=== PATIENT | male | born 1995 | race Caucasian/White ===

== ENCOUNTER 2024-10-22 14:35 | Emergency (ER) | payer OTHER, SELFPAY ==
[2024-10-22 14:43] VITALS: BP 137/104; PULSE 100; TEMP 36.6; O2SAT 97; BMI 35.4
--- OUTSIDE RECORDS SUMMARY | 2024-10-22 14:45 | XMS_ITS | Encounter Summary ---
Author Organization [facility] Address [address] [place] [address] Care Team Providers Care Technology Sales Representative Name Role Phone Delmer Yadav DO Primary Care Provider [phone] Umer Ruelas DO Unavailable [phone] Reason for Visit * Reason Onset Date Comments Med Refill 09/21/2023 Encounter Details Date Type Department Care Team (Late st Contact Info) Description 09/21/2023 Refill [facility] [address] [facility] [address] [place] [phone] Anselmo Potts PA [address] [facility] [address] [place], [place] [id number] Left hip pain Social History Tobacco Use Types Packs/Day Years Used Date Smoking Tobacco: Never Smokeless Tobacco: Never Alcohol Use Standard Drinks/Week Comments Yes 0 (1 standard drink = 0.6 oz pur e alcohol) AUDIT-C Answer Date Recorded Q1: How often do you have a drink containing alc ohol? 2-4 times a month 07/09/2023 Q2: How many drinks containi ng alcohol do you have on a typical day when you are drinking? 1 or 2 07/09/2023 Q3: How often do you have si x or more drinks on one occasion? Never 07/09/2023 PHQ-2 Answer Date Recorded Patient Health Questionnaire-2 Score 0 09/07/2023 Sex and Gender Information Value Date Recorded Sex Assigned at Male 09/07/2023 2:31 PM EDT Legal Sex Male 8:35 PM EDT Gender Identity Male 09/07/2023 2:31 PM EDT Sexual Orientation Long 09/07/2023 2: 31 PM EDT documented as of this encounter Plan of Treatment Upcoming Encounters Date Type Department Care Team (Late st Contact Info) Description 11/04/2024 8:00 AM EDT Office Visit [facility] [address] [place] [phone] Anselmo Potts PA [address] [place] [address] documented as of this encounter Visit Diagnoses Diagnosis Left hip pain Pain in joint, pelvic region and thigh documented in this encounter Care Teams Technology Sales Representative Relationship Specialty Start Date End Date Delmer Yadav DO [address] [facility] [address] [place] [address] PCP - General Family Medicine 09/07/23 Umer Ruelas DO [address] [facility] [address] [place] [address] PCP - Medical Harvey Commercial 11/26/19 05/27/99 documented as of this encounter
--- OUTSIDE RECORDS SUMMARY | 2024-10-22 14:45 | XMS_ITS | Clinical Summary ---
Author Organization [facility] Address [address] [place] [address] Care Team Providers Care Utility Mechanic Supervisor Name Role Phone Anselmo Potts PA-C Unavailable [phone] Anselmo Potts PA-C Primary Care Provider [phone] Allergies No known active allergies Medications atorvastatin (LIPITOR) 10 mg tablet Take by mouth every 24 hours. 03/29/20 23 Active fluticasone (FLONASE) 50 mcg/actuation nasal spray Use in the nose. 10/01/19 22 Active lisinopril (ZESTRIL) 20 mg tablet Take 20 mg by mouth. 07/20/19 23 Active montelukast (SINGULAIR) 10 mg tablet Take 10 mg by mouth. 08/13/19 22 Active vortioxetine (TRINTELLIX) 20 mg tablet Take 20 mg by mouth. 08/22/19 24 Active MEDICAL SUPPLYIndications :Other systemic lupus erythematosus with other organ involvement (HCC),Positive ROBLES (antinuclear antibody),Medicat ion monitoring encounter Hot tub for medical therapy 1 Each 12/27/19 24 Active meloxicam (MOBIC) 15 mg tablet Take 0.5-1 tablets by mouth once daily as needed for pain. Take with food 30 tablet 1 07/10/19 25 Active predniSONE (DELTASONE) 5 mg tablet Take 6 tab in AM on day 1 then reduce dose by 1 tablet every day until off 21 tablet 09/10/19 25 Active hydrOXYchloroQUIN E (PLAQUENIL) 200 mg tablet Take 1 tablet by mouth every 12 hours. YEARLY EYE EXAMS - NEXT DUE BEFORE DEC 2024 180 tablet 10/04/19 25 025 Active hydrOXYchloroQUIN E (PLAQUENIL) 200 mg tablet Take 1 tablet by mouth two times a day. 60 tablet 5 05/01/20 24 025 Discontinued Active Problems Problem Noted Date Diagnosed Date Class 2 severe obesity with serious comorbidity and body mass index (BMI) of 39.0 to 39.9 in adult 05/10/2024 Impaired fasting glucose 05/10/2024 Allergic rhinitis 09/29/2023 09/29/2023 Obstructive sleep apnea syndrome 09/29/2023 09/29/2023 Anxiety 08/10/2023 09/29/2023 Fibromyalgia 08/10/2023 09/29/2023 PTSD (post-traumatic stress disorder) 08/10/2023 09/29/2023 Hyperlipidemia 08/10/2023 09/29/2023 Obesity with body mass index 30 or greater 08/0909/29/2023 TMJ arthropathy 09/27/2020 09/29/2023 Primary hypertension 06/28/2020 09/29/2023 Primary insomnia 12/25/2019 09/29/2023 Encounters Date Type Department Care Team Description 10/03/2024 Refill Rheumatology [address] [place] [address] Donnell Null, [employer] Refill Request 09/23/2024 Telephone Endocrinology [address] [place] [address] Marco Johnson V, MD Appointment 09/10/2024 Get Medical Advice Rheumatology [address] [place] [address] Asmita Luong MD Change in flare symptoms 09/08/2024 Telephone Rheumatology [address] [place] [address] Asmita Luong MD Joint Pain 08/22/2024 9:00 AM EDT [facility] Endocrinology [address] [place], [place] [id number] Karlene Alfaro RD Class 2 severe obesity with serious comorbidity and body mass index (BMI) of 39.0 to 39.9 in adult, unspecified obesity type (HCC) (Primary Dx); Impaired fasting glucose; BMI 39.0-39.9,adult; Family history of diabetes mellitus type II 08/22/2024 Patient Msg Endocrinology [address] [place] [address] Provider, [facility] Message from [facility] DietitianTorrie 08/22/2024 Travel from Last 3 Months Social History Tobacco Use Types Packs/Day Years Used Date Smoking Tobacco: Never Smokeless Tobacco: Never Tobacco Cessation:Counseling Given: Not Answered Alcohol Use Standard Drinks/Week Comments Not Asked 0 (1 standard drink = 0.6 oz pure alcohol) socially, no more than 2 drinks in a month (cocktails) PHQ-2 Answer Date Recorded PHQ-2 score 0 09/27/2023 Area Deprivation Index Answer Date Chandler rded National Score (1-100), lower number is lower ri sk 61 10/01/2023 State Score (1-10), lower number is lower risk 4 10/01/2023 Data from: https://www.neighborhoodatlas.medicine.[facility].edu/. Last address used for calculation [address] [place] [address] 10/01/2023 Sex and Gender Information Value Date Recorded Sex Assigned at Not on file Legal Sex Male 6:38 PM EST Gender Identity Male 07/03/2024 1:34 PM EST Sexual Orientation Not on file Last Filed Vital Signs Vital Sign Reading Time Taken Comments Blood Pressure 145/88 05/10/2024 11:26 AM EST Pulse 97 05/10/2024 11:26 AM EST Temperature - - Respiratory Rate 16 05/10/2024 11:26 AM EST Oxygen Saturation - - Inhaled Oxygen Concentration - - Weight 122.5 kg (270 lb 1 oz) 05/10/2024 11:26 A M EST Height 175.3 cm (5' 9 ) 02/07/2024 12:45 PM EDT Body Mass Index 39.88 02/07/2024 12:45 PM EDT Plan of Treatment Upcoming Encounters Date Type Department Care Team (Late st Contact Info) Description 05/26/2025 2:00 PM EST Office Visit [facility] [address] [facility] [place] [address] Margarita Eugene MD [address] [place] [address] follow up Health Maintenance Due Date Last Done Comments HPV Vaccine: Recommended Bas ed On Risk 1995 Annual PCP Team Chronic Dise ase Visit 12/11/2013 BP Controlled (<130/80) 12/11/2013 Depression Screening 12/11/2013 Hepatitis C Screening 12/11/2013 DTaP,Tdap,Td Vaccine (6 - Td or Tdap) 10/13/2032 10/13/2022, 08/19/1997, 07/23/1996, Additional history exists Hepatitis B Vaccine Completed 10/13/2022, 08/19/1997, 02/11/1996, Additional history exists HIV Screening Completed 04/20/2023 Covid-19 Vaccine Completed 03/21/2024, , 04/01/2021, Additional history exists Influenza Vaccine Completed 03/21/2024, , 03/18/2021, Additional history exists [place] [address] [facility] Care Teams Utility Mechanic Supervisor Relationship Specialty Start Date End Date Anselmo Potts PA-C [address] [place] [address] PCP - General Physician Coal Picker 05/20/24 Anselmo Potts PA-C [address] [place] [address] Referring Physician Coal Picker 09/23/23
--- OUTSIDE RECORDS SUMMARY | 2024-10-22 14:46 | XMS_ITS | Encounter Summary ---
Author Organization [facility] Address [address] [facility] [place] [address] Care Team Providers Care Nursing Support Worker Name Role Phone Delmer Yadav DO Primary Care Provider [phone] Umer Ruelas DO Unavailable [phone] Encounter Details Date Type Department Care Team (Late st Contact Info) Description 10/21/2024 Telephone [facility] [address] [facility] [address] [place] [phone] Gris Waldron MA Social History Tobacco Use Types Packs/Day Years Used Date Smoking Tobacco: Never Smokeless Tobacco: Never Alcohol Use Standard Drinks/Week Comments Yes 0 (1 standard drink = 0.6 oz pur e alcohol) B1300 Health Literacy Answer Date Recor ded How often do you need to hav e someone help you when you read instructions, pamphlets, or other written material from your doctor or pharmacy? Never 11/09/2023 Social Connection and Isolation Panel [NHANES] A nswer Date Recorded In a typical week, how many times do you talk on the phone with family, friends, or neighbors? Three times a week 11/09/2023 How often do you get togethe r with friends or relatives? Once a week 11/09/2023 How often do you attend [facility] or episcopalian services? Never 11/09/2023 Do you belong to any clubs o r organizations such as hinduism groups, unions, fraternal or athletic groups, or school groups? No 11/09/2023 How often do you attend meet ings of the clubs or organizations you belong to? Never 11/09/2023 Are you , , di vorced, , never , or living with a partner? 11/09/2023 AUDIT-C Answer Date Recorded Q1: How often do you have a drink containing alc ohol? Monthly or less 11/09/2023 Q2: How many drinks containi ng alcohol do you have on a typical day when you are drinking? 1 or 2 11/09/2023 Q3: How often do you have si x or more drinks on one occasion? Never 11/09/2023 Overall Financial Resource Strain (CARDIA) Answe r Date Recorded How hard is it for you to pa y for the very basics like food, housing, medical care, and heating? Not hard at all 11/09/2023 PHQ-2 Answer Date Recorded Patient Health Questionnaire-2 Score 0 10/07/2024 [facility] - Occupational Stress Questionnaire Answer Date Recorded Do you feel stress - tense, restless, nervous, or anxious, or unable to sleep at night because your mind is troubled all the time - these days? Not at all 11/09/2023 Exercise Vital Sign Answer Date Recorde d On average, how many days pe r week do you engage in moderate to strenuous exercise (like a brisk walk)? 0 days 11/09/2023 On average, how many minutes do you engage in exercise at this level? 0 min 11/09/2023 Hunger Vital Sign Answer Date Recorded Within the past 12 months, y ou worried that your food would run out before you got the money to buy more. Never true 11/09/19 24 Within the past 12 months, t he food you bought just didn't last and you didn't have money to get more. Never true 11/09/2023 PRAPARE - Transportation Answer Date Re corded In the past 12 months, has l ack of transportation kept you from medical appointments or from getting medications? No 10/26 In the past 12 months, has l ack of transportation kept you from meetings, work, or from getting things needed for daily living? No 11/09/2023 Housing Stability Vital Sign Answer Dayday e Recorded In the last 12 months, was t here a time when you were not able to pay the mortgage or rent on time? No 11/09/2023 In the past 12 months, how m any times have you moved where you were living? 0 11/09/2023 At any time in the past 12 m [facility], were you homeless or living in a retirement (including now)? No 11/09/2023 Sex and Gender Information Value Date Recorded Sex Assigned at Male 09/07/2023 2:31 PM EDT Legal Sex Male 8:35 PM EDT Gender Identity Male 09/07/2023 2:31 PM EDT Sexual Orientation Long 09/07/2023 2: 31 PM EDT documented as of this encounter Miscellaneous Notes * Telephone Encounter - Gris Waldron MA - 10/21/2024 4:30 PM EDT Please advise. documented in this encounter Plan of Treatment Upcoming Encounters Date Type Department Care Team (Late st Contact Info) Description 11/04/2024 8:00 AM EDT Office Visit [facility] [address] [place] [address] Anselmo Potts PA [address] [place] [address] documented as of this encounter Goals Goal Patient Goal Type Associated Problems Recent Progress Patient-Stated? Author Help patient manage antidepressant medication Care Plan Patient on antidepressant monitoring plan No Anselmo Potts PA Baseline PHQ-9 Care Plan Baseline PHQ-9 No Anselmo Potts PA documented as of this encounter Visit Diagnoses Not on filedocumented in this encounter Additional Health Concerns Active Problems Noted Date Diagnosed Date Patient on antidepressant monitoring plan 2023 Baseline PHQ-9 03/25/2024 documented as of this encounter Care Teams Nursing Support Worker Relationship Specialty Start Date End Date Delmer Yadav DO [address] [place] [address] PCP - General Family Medicine 09/07/23 Umer Ruelas DO [address] [place] [phone] PCP - Medical [employer] 11/26/19 05/27/99 documented as of this encounter
--- OUTSIDE RECORDS SUMMARY | 2024-10-22 14:46 | XMS_ITS | Encounter Summary ---
Author Organization [facility] Address [address] [place] [address] Care Team Providers Care Mailing Machine Helper Name Role Phone Delmer Yadav DO Primary Care Provider [phone] Umer Ruelas DO Unavailable [phone] Encounter Details Date Type Department Care Team (Late st Contact Info) Description 10/22/2024 Orders Only [facility] [address] [facility] 230 [place] [address] Anselmo Potts PA [address] [facility] [address] [place], [place] [phone] Diarrhea of presumed infectious origin (Primary Dx) Social History Tobacco Use Types Packs/Day Years [...] week 11/09/2023 How often do you attend chur ch or voodoo services? Never 11/09/2023 Do you belong to any clubs o r organizations such as baptist groups, unions, fraternal or athletic groups, or [...] Recorded Patient Health Questionnaire-2 Score 0 10/07/2024 [facility] - Occupational Stress Questionnaire Answer Date Recorded [...] any time in the past 12 m [facility], were you homeless or living in a jail (including now)? No 11/09/2023 Sex and Gender [...] Visit [facility] [address] [place] [address] Anselmo Potts PA [address] [place] [address] Scheduled Orders Name Type Priority Associated Diagnoses Orde r Schedule Stool culture Microbiology Routine Diarrhea of presumed infectious origin Expected: 10/22/2024 (Approximate), Expires: 10/22/2025 documented as of this encounter Goals Goal Patient Goal Type Associated Problems Recent Progress Patient-Stated? Author Help patient manage antidepressant medication Care Plan Patient on antidepressant monitoring plan No Anselmo Potts PA Baseline PHQ-9 Care Plan Baseline PHQ-9 No Anselmo Potts PA documented as of this encounter Visit Diagnoses Diagnosis Diarrhea of presumed infectious origin- Primary documented in this encounter Additional Health Concerns Active Problems Noted Date Diagnosed Date Patient on antidepressant monitoring plan 2023 Baseline PHQ-9 03/25/2024 documented as of this encounter Care Teams Mailing Machine Helper Relationship Specialty Start Date End Date Delmer Yadav DO [address] [place] [address] PCP - General Family Medicine 09/07/23 Umer Ruelas DO [address] [place] [id number] [place] [address] PCP - Medical [employer] 11/26/19 05/27/99 documented as of this encounter
--- OUTSIDE RECORDS SUMMARY | 2024-10-22 14:46 | XMS_ITS | Encounter Summary ---
Author Organization [facility] Address [address] [place] [address] Care Team Providers Care Funeral Car Chauffeur Name Role Phone Anselmo Potts PA-C Unavailable Anselmo Potts PA-C Primary Care Provider [phone] Source Comments In the event this information is protected by the Federal Confidentiality of Alcohol and Drug AbusePatient Records regulations: The Federal rules restrict any use of the information to criminally investigate or prosecute any alcohol or drug abuse patient.[facility] Encounter Details Date Type Department Care Team (Late st Contact Info) Description 05/17/2024 Patient Msg Endocrinology [address] [place] [address] Marco Johnson V, MD [address] [place] [address] labs Social History Tobacco Use Types Packs/Day Years Used Date Smoking Tobacco: Never Smokeless Tobacco: Never Alcohol Use Standard Drinks/Week Comments Not Asked [...] is lower risk 4 10/01/2023 Data from: https://www.neighborhoodatlas.medicine.[facility].edu/. Last address used for calculation [address] 10/01/2023 Sex and Gender Information Value Date Recorded Sex Assigned at Not on file Legal Sex Male 6:38 PM EST Gender Identity Male 07/03/2024 1:34 PM EST Sexual Orientation Not on file documented as of this encounter Miscellaneous Notes * Telephone Encounter - Zulema Scott MA - 06/06/2024 9:34 AM EST Attempted prior authorization via [employer]. Received response that Olga had been denied on 03/27/2024. documented in this encounter Plan of Treatment Upcoming Encounters Date Type Department Care Team (Late st Contact Info) Description 05/26/2025 2:00 PM EST Office Visit Rheumatology [address] [place] [address] Margarita Eugene MD [address] [place], [place] [phone] follow up documented as of this encounter Visit Diagnoses Not on filedocumented in this encounter Care Teams Funeral Car Chauffeur Relationship Specialty Start Date End Date Anselmo Potts PA-C [address] [place] [address] PCP - General Physician Jewelry Cutter 05/20/24 Anselmo Potts PA-C [address] [place] [address] Referring Physician Jewelry Cutter 09/23/23 documented as of this encounter
--- OUTSIDE RECORDS SUMMARY | 2024-10-22 14:46 | XMS_ITS | Encounter Summary ---
Author Organization [facility] Address [address] [place] [address] Phone Care Team Providers Care Social Media Executive Name Role Phone Anselmo Potts Primary Care Provider [phone] Encounter Details Date Type Department Care Team (Latest Contact Info) Description 10/08/2023 Transcribe Orders [facility] [address] [place] [address] Rachid Mcdonald MD [address] [address] Constipation (Primary Dx) Social History Tobacco Use Types Packs/Day Years Used Date Smoking Tobacco: Never Smokeless Tobacco: Never Alcohol Use Standard Drinks/Week Comments Never 0 (1 standard drink = 0.6 oz pur e alcohol) Sex and Gender Information Value Date Recorded Sex Assigned at Male 08/13/2023 8:51 AM EDT Legal Sex Male 1:49 PM EST Gender Identity Male 08/13/2023 8:51 AM EDT Sexual Orientation Long 08/13/2023 8: 51 AM EDT COVID-19 Exposure Response Date Recorded In the last 10 days, have yo u been in contact with someone who was confirmed or suspected to have Coronavirus/COVID-19? No / Unsure 09/24/2023 3:43 PM EDT documented as of this encounter Plan of Treatment Not on file documented as of this encounter Visit Diagnoses Diagnosis Constipation- Primary Unspecified constipation documented in this encounter Care Teams Social Media Executive Relationship Specialty Start Date End Date Anselmo Potts PA [address] [place] [id number] PCP - General Family Medicine 08/22/23 documented as of this encounter
--- OUTSIDE RECORDS SUMMARY | 2024-10-22 14:46 | XMS_ITS | Patient Health Record ---
Author Organization [facility] Servic es Address [address] [place] [address] Care Team Providers Care Welder 2Nd Shift Name Role Phone DelgadoMadeleine Primary Care Provider [phone] Allergies No Known Allergies Reason For Referral No Information Medications Medication SIG (Take, Route, Frequency, Duration) Notes Start Date End Date Status Glycopyrrolate 2 MG 1 tablet Orally twice daily Active Wellbutrin XL 150 MG 1 tablet in the morning Orally Once a day for 30 day(s) Active MiraLax 17 GM/SCOOP as directed Orally Twice a day as needed Active Ondansetron 4 MG 1 tablet on the tongue and allow to dissolve Orally three times a day (tid) as needed (prn) for 15 days 08/21/2022 Not-Taking Nabumetone 500 MG 1 tablet Orally Twice a day Active Rogaine Mens Extra Strength 5 % as directed Externally Not-Taking Montelukast Sodium 10 mg TAKE ONE TABLET BY MOUTH DAILY for 30 Active Gabapentin 300 MG 1 capsule Orally 3 times a day for 30 days As needed Active Atorvastatin Calcium 10 mg TAKE ONE TABL ET BY MOUTH ONCE DAILY for 30 Active Loratadine 10 MG 1 tablet Orally twice a day Active Melatonin 10 MG as directed Orally Active hydroCHLOROthiazide 12.5 mg TAKE ONE TAB LET BY MOUTH DAILY IN THE MORNING NEEDED for 30 Not-Taking Pepcid 20 MG 1 tablet at bedtime as needed Orally Once a day Active Docusate Sodium 100 mg TAKE ONE CAPSULE BY MOUTH ONCE DAILY NEEDED for 30 Active Lisinopril-hydroCHLOROthiazi d e 20-12.5 MG TAKE ONE TABLET BY MOUTH ONCE DAILY for 30 Not-Taking Trintellix 20 MG 1 tablet Orally Once a day for 90 days Active Meloxicam 15 MG TAKE ONE TABLET BY MOUTH ONCE DAILY Orally Once a day for 30 day(s) Not-Taking Social History Tobacco Use: Social History Observation Description Date Details (start date - stop date) Never Smoker NA - NA Tobacco Screen: Question Answer Notes Are you a: never smoker Alcohol Screening: Question Answer Notes Did you have a drink containing alcohol in the p ast year? No Points 0 Interpretation Negative Problems Problem Type SNOMED Code ICD Code Onset Dates Problem Status W/U Status Risk Notes Problem 39840575348206 Morbid (severe) obesity due to excess calories (E66.01) Active confirmed Problem 653783452 Other obesity du e to excess calories (E66.09) Active confirmed Problem 028359788 Fibromyalgia (M79.7) Active confirmed Problem 27734855 Vitamin D defici ency (E55.9) Active confirmed Problem 66466057 Dysfunction of b oth eustachian tubes (H69.83) Active confirmed Problem 71067193 Allergic sinusit is (J30.9) Active confirmed Problem 66853443 Constipation, unspecified constipation type (K59.00) Active confirmed Problem 06581032 Fatigue, unspeci fied type (R53.83) Active confirmed Problem 05642864 Chronic fatigue (R53.82) Active confirmed Problem 251709581 Insomnia, unspec ified type (G47.00) Active confirmed Problem 619495001 Mild episode of recurrent major depressive disorder (F33.0) Active confirmed Problem 91490393 Arthralgia, unspecified joint (M25.50) Active confirmed Problem 60751474 Hypercholesterol emia (E78.00) Active confirmed Problem 994690256 BMI 33.0-33.9,ad ult (Z68.33) Active confirmed Problem 887927902 ROBLES positive (R76.8) Active confirmed Problem 48558661 REYNOLD (generalized anxiety disorder) (F41.1) Active confirmed Problem 895039893 Body mass index [BMI] 33.0-33.9, adult (Z68.33) Active confirmed Problem 211156621 Body mass index [BMI] 37.0-37.9, adult (Z68.37) Active confirmed Problem 041626519 Obesity, unspeci fied (E66.9) Inactive confirmed Problem 360671844 Body mass index [BMI] 35.0-35.9, adult (Z68.35) Inactive confirmed Plan Of Treatment No Information Insurance Providers Payer Name Payer Address Payer Phone Subscriber Number Group Number Insured Name Patient Relationship to Insured Coverage Start Date Coverage End Date [employer] PPO [address] [place] [address] [id number] MALKA ALEJANDRO Self - patient is the insured 2 [employer] CLAIMS [address] [address] [place] [address] [id number] MALKA ALEJANDRO Self - patient is the insured 3 Medications Administered Medication Instructions Date of Administration Dosage Notes Kenalog 04/26/2023 40 mg Medical (General) History Medical History History ICD Code hypertension allergies PTSD anxiety CHRONIC CONSTIPATION EUSTACIAN TUBE DISFUNCTION Surgical History Surgery Date(Month/Year) left ankle 06/2020 Hospitalization History Reason Date(Month/Year) CHEST PAIN 06/2022 see surgical
--- OUTSIDE RECORDS SUMMARY | 2024-10-22 14:46 | XMS_ITS | Encounter Summary ---
Author Organization [facility] Address [address] [place] [address] Care Team Providers Care Client Operations Manager Name Role Phone Anselmo Potts PA-C Unavailable [phone] Anselmo Ptots PA-C Primary Care Provider [phone] Source Comments In the event this information is protected by the Federal Confidentiality of Alcohol and Drug AbusePatient Records regulations: The Federal rules restrict any use of the information to criminally investigate or prosecute any alcohol or drug abuse patient.[facility] Encounter Details Date Type Department Care Team (Late st Contact Info) Description 05/13/2024 Get Medical Advice Endocrinology [address] [place] [address] Marco Johnson V, MD [address] [place] [address] Dexamethasone Social History Tobacco Use Types Packs/Day Years [...] is lower risk 4 10/01/2023 Data from: https://www.neighborhoodatlas.medicine.[facility].edu/. Last address used for calculation [address] 10/01/2023 Sex and Gender Information Value Date Recorded Sex Assigned at Not on file Legal Sex Male 6:38 PM EST Gender Identity Male 07/03/2024 1:34 PM EST Sexual Orientation Not on file documented as of this encounter Miscellaneous Notes * Telephone Encounter - Mickie Nunez RN - 05/15/2024 1:04 PM EST Requester: Patient Last Endocrinology visit: 05/10/2024. Follow-up visit scheduled: Visit date not found. Requested Prescriptions Pending Prescriptions Disp Refills dexAMETHasone (DECADRON) 1 mg tablet 1 tablet 0 Sig: Take 1 tablet at 11 pm and draw blood the next day PSS NOTE: Please schedule appointment: No Thank you! Gena Nunez RN documented in this encounter Plan of Treatment Upcoming Encounters Date Type Department Care Team (Late st Contact Info) Description 05/26/2025 2:00 PM EST Office Visit Rheumatology [address] [place] [address] Margarita Eugene MD [address] [place], [place] [address] follow up documented as of this encounter Visit Diagnoses Diagnosis Class 2 severe obesity with serious comorbidity and body mass index (BMI) of 39.0 to 39.9 in adult, unspecified obesity type (HCC) documented in this encounter Care Teams Client Operations Manager Relationship Specialty Start Date End Date Anselmo Potts PA-C [address] [place] [address] PCP - General Physician Pulper Operator 05/20/24 Anselmo Potts PA-C [address] [place] [address] Referring Physician Pulper Operator 09/23/23 documented as of this encounter
--- OUTSIDE RECORDS SUMMARY | 2024-10-22 14:46 | XMS_ITS | Encounter Summary ---
Author Organization [facility] Address [address] [place] [address] Care Team Providers Care Technical Service Representative Name Role Phone Delmer Yadav DO Primary Care Provider [phone] Umer Ruelas DO Unavailable [phone] Reason for Visit * Reason Onset Date Comments Med Refill 10/10/2024 Encounter Details Date Type Department Care Team (Late st Contact Info) Description 10/10/2024 Refill [facility] [address] [facility] [address] [place] [id number] Delmer Yadav, DO [address] [facility] [address] [place] [address] Muscle spasm (Primary Dx) Social History Tobacco Use Types [...] often do you attend chur ch or mandaen services? Never 11/09/2023 Do you belong to any clubs o r organizations such as advent groups, unions, fraternal or athletic groups, or [...] Recorded Patient Health Questionnaire-2 Score 0 10/07/2024 [facility] of Occupat ional Health - Occupational Stress Questionnaire Answer Date Recorded [...] any time in the past 12 m [facility], were you homeless or living in [...] [address] [place] [address] Anselmo Potts PA [address] [place] [address] documented as of this encounter Goals Goal Patient Goal Type Associated Problems Recent Progress Patient-Stated? Author Help patient manage antidepressant medication Care Plan Patient on antidepressant monitoring plan No Anselmo Potts, PA Baseline PHQ-9 Care Plan Baseline PHQ-9 No Anselmo Potts PA documented as of this encounter Visit Diagnoses Diagnosis Muscle spasm- Primary Spasm of muscle documented in this encounter Additional Health Concerns Active Problems Noted Date Diagnosed Date Patient on antidepressant monitoring plan 2023 Baseline PHQ-9 03/25/2024 documented as of this encounter Care Teams Technical Service Representative Relationship Specialty Start Date End Date Delmer Yadav DO [address] [place] [address] PCP - General Family Medicine 09/07/23 Umer Ruelas DO [address] [place] [address] [place] [address] PCP - Medical [place] [employer] 11/26/19 05/27/99 documented as of this encounter
--- OUTSIDE RECORDS SUMMARY | 2024-10-22 14:46 | XMS_ITS | Encounter Summary ---
Author Organization [facility] Address [address] [place] [address] Care Team Providers Care Insurance Sales Agent Name Role Phone Delmer Yadav DO Primary Care Provider [phone] Umer Ruelas DO Unavailable [phone] Encounter Details Date Type Department Care Team (Late st Contact Info) Description 03/24/2024 Abstract [facility] [address] [facility] [address] [place] [address] Delmer Yadav, [address] [facility] [address] [place] [address] Social History Tobacco Use Types Packs/Day Years [...] often do you attend chur ch or amish services? Never 11/09/2023 Do you belong to any clubs o r organizations such as orthodoxy groups, unions, fraternal or athletic groups, or [...] Date Recorded Patient Health Questionnaire-2 Score 0 01/11/2024 [facility] of Occupat ional Health - Occupational Stress [...] any time in the past 12 m [facility], were you homeless or living in a intermediate (including now)? No 11/09/2023 Sex and Gender [...] [address] [place] [address] Anselmo Potts PA [address] [place] [address] documented as of this encounter Visit Diagnoses Not on filedocumented in this encounter Care Teams Insurance Sales Agent Relationship Specialty Start Date End Date Delmer Yadav DO [address] [place] [address] PCP - General Family Medicine 09/07/23 Umer Ruelas DO [address] [place] [address] PCP - Medical [place] [employer] 11/26/19 05/27/99 documented as of this encounter
--- OUTSIDE RECORDS SUMMARY | 2024-10-22 14:46 | XMS_ITS | Encounter Summary ---
Author Organization [facility] Address [address] [place] [address] Care Team Providers Care Director Report Name Role Phone Anselmo Potts PA-C Unavailable [phone] Anselmo Potts PA-C Primary Care Provider [phone] Source Comments In the event this information is protected by the Federal Confidentiality of Alcohol and Drug AbusePatient Records regulations: The Federal rules restrict any use of the information to criminally investigate or prosecute any alcohol or drug abuse patient.[facility] Encounter Details Date Type Department Care Team (Late st Contact Info) Description 11/12/2023 Patient Msg Hematology [address] [place], [place] [id number] Provider, Ccf Appointment Scheduled with Dr. Luong Social History Tobacco Use Types Packs/Day Years Used Date Smoking Tobacco: Never Assessed PHQ-2 Answer Date Recorded PHQ-2 score 0 09/27/2023 Area Deprivation Index Answer Date Chandler rded National Score (1-100), lower number is lower ri sk 61 10/01/2023 State Score (1-10), lower number is lower risk 4 10/01/2023 Data from: https://www.neighborhoodatlas.medicine.[facility].edu/. Last address used for calculation [address] 10/01/2023 Sex and Gender Information Value Date Recorded Sex Assigned at Not on file Legal Sex Male 6:38 PM EST Gender Identity Male 07/03/2024 1:34 PM EST Sexual Orientation Not on file documented as of this encounter Plan of Treatment Upcoming Encounters Date Type Department Care Team (Late st Contact Info) Description 05/26/2025 2:00 PM EST Office Visit Rheumatology [address] [place] [address] Margarita Eugene MD [address] [place] [address] follow up documented as of this encounter Visit Diagnoses Not on filedocumented in this encounter Care Teams Director Report Relationship Specialty Start Date End Date Anselmo Potts PA-C [address] [place] [address] PCP - General Physician Personnel Coordinator 05/20/24 Anselmo Potts PA-C [address] [place] [address] Referring Physician Personnel Coordinator 09/23/23 documented as of this encounter
--- OUTSIDE RECORDS SUMMARY | 2024-10-22 14:46 | XMS_ITS | Encounter Summary ---
Author Organization [facility] Address [address] [place] [address] Care Team Providers Care Wall Covering Contractor Name Role Phone Anselmo Potts PA-C Unavailable [phone] Anselmo Potts PA-C Primary Care Provider [phone] Source Comments In the event this information is protected by the Federal Confidentiality of Alcohol and Drug AbusePatient Records regulations: The Federal rules restrict any use of the information to criminally investigate or prosecute any alcohol or drug abuse patient.[facility] Encounter Details Date Type Department Care Team (Late st Contact Info) Description 08/22/2024 Patient Msg Endocrinology [address] [place], [place] [id number] Provider, Ccf Message from [facility] Torrie Estrada Social History Tobacco Use Types Packs/Day Years [...] is lower risk 4 10/01/2023 Data from: https://www.neighborhoodatlas.medicine.[facility].edu/. Last address used for calculation [address] 10/01/2023 Sex and Gender Information Value Date Recorded Sex Assigned at Not on file Legal Sex Male 6:38 PM EST Gender Identity Male 07/03/2024 1:34 PM EST Sexual Orientation Not on file documented as of this encounter Plan of Treatment Upcoming Encounters Date Type Department Care Team (Late st Contact Info) Description 05/26/2025 2:00 PM EST Office Visit Rheumatology [address] [place] [address] Margarita Eugene MD [address] [place], [place] [phone] follow up documented as of this encounter Visit Diagnoses Not on filedocumented in this encounter Care Teams Wall Covering Contractor Relationship Specialty Start Date End Date Anselmo Potts PA-C [address] [place] [address] PCP - General Physician Computer Systems Analyst 05/20/24 Anselmo Potts PA-C [address] [place] [address] Referring Physician Computer Systems Analyst 09/23/23 documented as of this encounter
--- OUTSIDE RECORDS SUMMARY | 2024-10-22 14:46 | XMS_ITS | Encounter Summary ---
Author Organization [facility] Address [address] [place] [address] Care Team Providers Care Rubbish Collection Supervisor Name Role Phone Anselmo Potts PA-C Unavailable [phone] Anselmo Potts PA-C Primary Care Provider [phone] Source Comments In the event this information is protected by the Federal Confidentiality of Alcohol and Drug AbusePatient Records regulations: The Federal rules restrict any use of the information to criminally investigate or prosecute any alcohol or drug abuse patient.[facility] Encounter Details Date Type Department Care Team (Late st Contact Info) Description 05/12/2024 Patient Msg Endocrinology [address] [place] [address] Arabella Manning LSW [address] [place] [address] Welcome Group--Please Read Social History Tobacco Use Types Packs/Day Years [...] [facility].edu/. Last address used for calculation [address] 10/01/2023 Sex and Gender Information Value Date Recorded Sex Assigned at Not on file Legal Sex Male 6:38 PM EST Gender Identity Male 07/03/2024 1:34 PM EST Sexual Orientation Not on file documented as of this encounter Plan of Treatment Upcoming Encounters Date Type Department Care Team (Late st Contact Info) Description 05/26/2025 2:00 PM EST Office Visit Rheumatology [address] [place] [address] Margarita Eugene MD [address] [place], [place] [address] follow up documented as of this encounter Visit Diagnoses Not on filedocumented in this encounter Care Teams Rubbish Collection Supervisor Relationship Specialty Start Date End Date Anselmo Potts PA-C [address] [place] [address] PCP - General Physician Data Conversion Analyst 05/20/24 Anselmo Potts PA-C [address] [place] [address] Referring Physician Data Conversion Analyst 09/23/23 documented as of this encounter
--- OUTSIDE RECORDS SUMMARY | 2024-10-22 14:46 | XMS_ITS | Encounter Summary ---
Author Organization [facility] Address [address] [place] [address] Care Team Providers Care Gta Name Role Phone Anselmo Potts PA-C Unavailable [phone] Anselmo Potts PA-C Primary Care Provider [phone] Source Comments In the event this information is protected by the Federal Confidentiality of Alcohol and Drug AbusePatient Records regulations: The Federal rules restrict any use of the information to criminally investigate or prosecute any alcohol or drug abuse patient.[facility] Encounter Details Date Type Department Care Team (Late st Contact Info) Description 10/21/2023 [place] [address] Provider, Ccf MRI Screening Questionnaire Completion Required Social History Tobacco Use Types Packs/Day Years Used Date Smoking Tobacco: Never Assessed PHQ-2 Answer Date Recorded PHQ-2 score 0 09/27/2023 Area Deprivation Index Answer Date Chandler rded National Score (1-100), lower number is lower ri sk 61 10/01/2023 State Score (1-10), lower number is lower risk 4 10/01/2023 Data from: https://www.neighborhoodatlas.medicine.[facility].edu/. Last address used for calculation [address] [...] 05/26/2025 2:00 PM EST Office Visit Rheumatology [address] [place] [address] Margarita Eugene MD [address] [facility] [address] [place], [place] [address] follow up documented as of this encounter Visit Diagnoses Not on filedocumented in this encounter Care Teams Gta Relationship Specialty Start Date End Date Anselmo Potts PA-C [address] [facility] [address] [place] [address] PCP - General Physician Director Music 05/20/24 Anselmo Potts PA-C [address] [place] [address] Referring Physician Director Music 09/23/23 documented as of this encounter
--- OUTSIDE RECORDS SUMMARY | 2024-10-22 14:46 | XMS_ITS | Clinical Summary ---
Author Organization [facility] Address [address] [place] [address] Phone Care Team Providers Care Reel Assembler Name Role Phone Anselmo Potts Primary Care Provider [phone] Allergies No known active allergies Medications atorvastatin (Lipitor) 10 mg tablet Take 1 tablet (10 mg) by mouth once daily. Active buPROPion XL (Wellbutrin XL) 150 mg 24 hr tablet Take 1 tablet (150 mg) by mouth once daily. Active vortioxetine (Trintellix) 20 mg tablet tablet Take 1 tablet (20 mg) by mouth once daily. 4 Active triamcinolone (Nasacort) 55 mcg nasal inhaler Administer 2 sprays into affected nostril(s) once daily. Active semaglutide, weight loss, (Wegovy) 2.4 mg/0.75 mL pen injector Inject 2.4 mg under the skin 1 (one) time per week. 4 Active polyethylene glycol (Miralax) 17 gram/dose powder Take 17 g by mouth once daily. 2 Active montelukast (Singulair) 10 mg tablet Take 1 tablet (10 mg) by mouth once daily. 2 Active melatonin 10 mg tablet,disintegra ting Take 10 mg by mouth once daily. Active loratadine (Claritin) 10 mg tablet Take 1 tablet (10 mg) by mouth twice a day. Active glycopyrrolate (Robinul) 2 mg tablet Take 1 tablet (2 mg) by mouth 2 times a day. Active gabapentin (Neurontin) 100 mg capsule Take 3 capsules (300 mg) by mouth once daily at bedtime. 3 Active traMADol (Ultram) 50 mg tablet Take 1 tablet (50 mg) by mouth every 6 hours if needed. 4 Active lisinopril 20 mg tabletIndications :Essential hypertension Take 1 tablet (20 mg) by mouth once daily. 90 tablet 3 4 04/07/20 25 Active Active Problems Problem Noted Date Diagnosed Date Never smoked tobacco 08/22/2023 BMI 33.0-33.9,adult 08/22/2023 Hyperlipidemia 08/22/2023 Essential hypertension 08/22/2023 Sleep apnea 08/22/2023 Abnormal EKG 08/22/2023 Orthostatic hypotension 08/22/2023 Dizziness 08/22/2023 Family History Medical History Relation Name Comments Anemia Father Nicomarijaas MattGiesen Asthma Father Nicomarijalisa GutierrezGiesen Atrial fibrillation Father Nicomarijaas MattGiesen CABG Father Nicomarijaas MattGiesen Cancer Father Nicomarijaas MattGiesen Depression Father Nicolaas MattGiesen Diabetes Father Nicolaas MattGiesen Diabetes type II Father Nicomarijaas MattGiesen Heart attack Father Nicolaas VanGiesen Heart disease Father Nicolaas MattGiesen Heart failure Father Nicolaas MattGiesen Hyperlipidemia Father Nicolaas VanGiesen Hypertension Father Nicomarijaas MattGiesen Kidney disease Father Nicomarijaas MattGiesen Lung disease Father Nicolaas MattGiesen Obesity Father Nicolaas VanGiesen Stroke Father Nicolaas MattGiesen No Known Problems Mother mixed connective tissue disease Sister Relation Name Status Comments Father Nicomarijaas MattGiesen Mother Sister Social History Tobacco Use Types Packs/Day Years [...] Orientation Long 08/13/2023 8: 51 AM EDT Last Filed Vital Signs Vital Sign Reading Time Taken Comments Blood Pressure 138/89 09/24/2023 4:29 PM EDT Pulse 77 09/24/2023 4:02 PM EDT Temperature - - Respiratory Rate - - Oxygen Saturation - - Inhaled Oxygen Concentration - - Weight 104 kg (229 lb) 09/24/2023 4:02 PM EDT Height 175.3 cm (5' 9 ) 09/24/2023 4:02 PM EDT Body Mass Index 33.82 09/24/2023 4:02 PM EDT Plan of Treatment Health Maintenance Due Date Last Done Comments HIV Screening 1995 Lipid Panel 1995 Yearly Adult Physical 1995 Varicella Vaccines (2 of 2 - 2-dose childhood series) 04/13/1997 12/22/1996 IPV Vaccines (4 of 4 - 4-dose series) 1999 07/23/1996, 04/10/1996, 02/11/1996 Diabetes Screening 12/11/2013 Hepatitis C Screening 12/11/2013 Hepatitis A Vaccines (1 of 2 - Risk 2-dose series) 12/11/2014 COVID-19 Vaccine ( - season) 2024 03/27/2023, 04/01/2021, 07/02/2020, Additional history exists Influenza Vaccine (Season Ended) 2025 03/27/2023, 03/18/2021, 02/20/2020, Additional history exists DTaP/Tdap/Td Vaccines (6 - Td or Tdap) 10/13/2032 10/13/2022, 08/19/1997, 07/23/1996, Additional history exists Zoster Vaccines (1 of 2) 12/11/2045 12/22/1996 HIB Vaccines Aged Out 07/23/1996, 06/1996, 04/10/1996, Additional history exists No longer eligible based on patient's age to complete this topic MMR Vaccines Completed 12/22/1996 Pneumococcal Vaccine: Pediatrics and At-Risk Adult Patients Aged Out 12/22/1996, 07/23/1996, 04/10/1996, Additional history exists No longer eligible based on patient's age to complete this topic Hepatitis B Vaccines Completed 10/13/2022, 08/19/1997, 02/11/1996, Additional history exists HPV Vaccines Aged Out No longer eligi ble based on patient's age to complete this topic Meningococcal Vaccine Aged Out No rigo scott eligible based on patient's age to complete this topic Rotavirus Vaccines Aged Out No longer eligible based on patient's age to complete this topic Insurance [facility] MED MEDICAL [facility] MED Care Teams Reel Assembler Relationship Specialty Start Date End Date Anselmo Potts PA [address] [place] [address] PCP - General Family Medicine 08/22/23
--- OUTSIDE RECORDS SUMMARY | 2024-10-22 14:46 | XMS_ITS | Encounter Summary ---
Author Organization Address [address] [place] [address] Care Team Providers Care Cotton Farmer Name Role Phone Anselmo Potts PA-C Unavailable [phone] Anselmo Potts PA-C Primary Care Provider Source Comments In the event this information is protected by the Federal Confidentiality of Alcohol and Drug AbusePatient Records regulations: The Federal rules restrict any use of the information to criminally investigate or prosecute any alcohol or drug abuse patient. Encounter Details Date Type Department Care Team (Late st Contact Info) Description 11/19/2023 Patient [facility] -[address] [place] [address] Ghazala Davis RPh At your next appointment, choose Pharmacy. Social History Tobacco Use Types Packs/Day Years Used Date Smoking Tobacco: Never Assessed PHQ-2 Answer Date Recorded PHQ-2 score 0 09/27/2023 Area Deprivation Index Answer Date Chandler rded National Score (1-100), lower number is lower ri sk 61 10/01/2023 State Score (1-10), lower number is lower risk 4 10/01/2023 Data from: https://www.neighborhoodatlas.medicine.[facility].edu/. Last address used for calculation [place]ie [...] 05/26/2025 2:00 PM EST Office Visit Rheumatology [address] [facility] [place] [address] Margarita Eugene MD [address] [place] [address] follow up documented as of this encounter Visit Diagnoses Not on filedocumented in this encounter Care Teams Cotton Farmer Relationship Specialty Start Date End Date Anselmo Potts PA-C [address] [place] [address] PCP - General Physician Flat Clothier 05/20/24 Anselmo Potts PA-C [address] [place] [address] Referring Physician Flat Clothier 09/23/23 documented as of this encounter
--- OUTSIDE RECORDS SUMMARY | 2024-10-22 14:46 | XMS_ITS | Encounter Summary ---
Author Organization [facility] Address [address] [place] [address] Care Team Providers Care Waiter/Waitress Bar Name Role Phone Anselmo Potts PA-C Unavailable [phone] Anselmo Potts PA-C Primary Care Provider [phone] Source Comments In the event this information is protected by the Federal Confidentiality of Alcohol and Drug AbusePatient Records regulations: The Federal rules restrict any use of the information to criminally investigate or prosecute any alcohol or drug abuse patient.[facility] Encounter Details Date Type Department Care Team (Late st Contact Info) Description 05/12/2024 Patient Msg Endocrinology [address] [place] [address] Provider, Cc Endocrine Psychology Welcome Group Social History Tobacco Use Types Packs/Day Years [...] is lower risk 4 10/01/2023 Data from: https://www.neighborhoodatlas.[facility]/. Last address used for calculation [address] [...] 05/26/2025 2:00 PM EST Office Visit Rheumatology [address] [place] [address] Margarita Eugene MD [address] [place], [place] [id number] follow up documented as of this encounter Visit Diagnoses Not on filedocumented in this encounter Care Teams Waiter/Waitress Bar Relationship Specialty Start Date End Date Anselmo Potts PA-C [address] [place] [address] PCP - General Physician Health Safety Engineer 05/20/24 Anselmo Potts PA-C [address] [place] [address] Referring Physician Health Safety Engineer 09/23/23 documented as of this encounter
--- OUTSIDE RECORDS SUMMARY | 2024-10-22 14:46 | XMS_ITS | Encounter Summary ---
Author Organization [facility] Address [address] [place] [address] Care Team Providers Care Comic Illustrator Name Role Phone Delmer Yadav DO Primary Care Provider [phone] Umer Ruelas DO Unavailable [phone] Encounter Details Date Type Department Care Team (Late st Contact Info) Description 06/27/2024 Abstract [facility] [address] [facility] [address] [place] [id number] Delmer Yadav, [address] [facility] [address] [place], [place] [id number] Social History Tobacco Use Types Packs/Day Years [...] often do you attend chur ch or hindu services? Never 11/09/2023 Do you belong to any clubs o r organizations such as orthodox groups, unions, fraternal or athletic groups, or [...] Date Recorded Patient Health Questionnaire-2 Score 0 05/16/2024 [facility] - Occupational Stress [...] any time in the past 12 m [facility], were you homeless or living in a usp (including now)? No 11/09/2023 Sex and Gender [...] [address] [place] [address] Anselmo Potts PA [address] [place] [address] documented as of this encounter Goals Goal Patient Goal Type Associated Problems Recent Progress Patient-Stated? Author Help patient manage antidepressant medication Care Plan Patient on antidepressant monitoring plan No Anselmo Potts, PETRA Baseline PHQ-9 Care Plan Baseline PHQ-9 No Anselmo Potts PA documented as of this encounter Visit Diagnoses Not on filedocumented in this encounter Additional Health Concerns Active Problems Noted Date Diagnosed Date Patient on antidepressant monitoring plan 2023 Baseline PHQ-9 03/25/2024 documented as of this encounter Care Teams Comic Illustrator Relationship Specialty Start Date End Date Delmer aYdav DO [address] [place] [address] PCP - General Family Medicine 09/07/23 Umer Ruelas DO [address] [place] [address] PCP - Medical [place] [employer] 11/26/19 05/27/99 documented as of this encounter
--- OUTSIDE RECORDS SUMMARY | 2024-10-22 14:46 | XMS_ITS | Encounter Summary ---
Author Organization [facility] Address [id number] [place] [address] Care Team Providers Care Ski Patroller Name Role Phone Jose Valles AIR CONDITIONING MECHANIC INDUSTRIAL-COBOL APPLICATION DEVELOPER Primary Care Provider [phone] Encounter Details Date Type Department Care Team (Late st Contact Info) Description 07/19/2020 [facility] [address] [place] [id number] Ref Prov, [place] [address] Social History Tobacco Use Types Packs/Day Years Used Date Smoking Tobacco: Never Smokeless Tobacco: Never Alcohol Use Standard Drinks/Week Comments Never 0 (1 standard drink = 0.6 oz pur e alcohol) Social Connection and Isolat ion Panel [NHANES] Answer Date Recorded In a typical week, how many times do you talk on the phone with family, friends, or neighbors? More than three times a week 12/23/2019 How often do you get togethe r with friends or relatives? More than three times a week 12/23/2019 How often do you attend chur ch or gnosticism services? Never 12/23/2019 Do you belong to any clubs o r organizations such as hoahaoism groups, unions, fraternal or athletic groups, or school groups? No 12/23/2019 How often do you attend meet ings of the clubs or organizations you belong to? Never 12/23/2019 Are you , , di vorced, , never , or living with a partner? 12/23/2019 AUDIT-C Answer Date Recorded Q1: How often do you have a drink containing alc ohol? Never 12/23/2019 Average Number of Drinks Not on file 020 Q3: How often do you have si x or more drinks on one occasion? Never 12/23/2019 Overall Financial Resource Strain (CARDIA) Answe r Date Recorded How hard is it for you to pa y for the very basics like food, housing, medical care, and heating? Not hard at all 12/23/2019 PHQ-2 Answer Date Recorded Total Score 0 12/23/2019 [facility] - Occupational Stress Questionnaire Answer Date Recorded Do you feel stress - tense, restless, nervous, or anxious, or unable to sleep at night because your mind is troubled all the time - these days? Only a little 12/23/2019 Exercise Vital Sign Answer Date Recorde d On average, how many days pe r week do you engage in moderate to strenuous exercise (like a brisk walk)? 5 days 12/23/2019 On average, how many minutes do you engage in exercise at this level? 40 min 12/23/2019 PRAPARE - Transportation Answer Date Re corded In the past 12 months, has l ack of transportation kept you from medical appointments or from getting medications? No 11/26 In the past 12 months, has l ack of transportation kept you from meetings, work, or from getting things needed for daily living? No 12/23/2019 Childcare Answer Date Recorded Do problems getting child ca re make it difficult for you to work or study? No 12/23/2019 Employment Answer Date Recorded Do you need help finding a [facility] and/or a training program? No 12/23/2019 Purpose - Life Answer Date Recorded Purpose and direction in life Unknown Education Answer Date Recorded What is the highest level of school you have completed or the highest degree you have received? Associate degree: occupational, technical, or vocational program 12/23/2019 Sex and Gender Information Value Date Recorded Sex Assigned at Male 01/28/2021 11:02 AM EDT Legal Sex Male 1:17 PM EST Gender Identity Male 01/28/2021 11:02 AM EDT Sexual Orientation Long 01/28/2021 11 :02 AM EDT COVID-19 Exposure Response Date Recorded In the last month, have you been in contact with someone who was confirmed or suspected to have Coronavirus / COVID-19? No / Unsure 06/28/2020 2:19 PM EST documented as of this encounter Plan of Treatment Not on file documented as of this encounter Procedures Procedure Name Priority Date/Time Associated Diagnosis Comments SARS COV 2 (COVID-19) STAT 07/07/2020 documented in this encounter Results * SARS COV 2 (COVID-19) (07/07/2020) EXTERNAL SARS COV 2 Negative Negative MANUALLY TRANSCRIBED RESULTS NASOPHARYNGEAL 07/07/2020 us Not In System Ref Prov MICROBIOLOGY - GENERAL OR DERABLES Final Result MANUALLY TRANSCRIBED RESULTS documented in this encounter Visit Diagnoses Not on filedocumented in this encounter Additional Health Concerns Infection Onset Date Last Indicated Resolved Time COVID-19 Rule-Out 07/18/2022 07/18/2022 07/18/2022 6:34 PM EST Assessment Noted Time PHQ-9 Depression Total Score: 0 12/23/19 20 12:28 PM EDT A Body Mass Index follow-up plan has been documented for the patient 06/28/2020 2:40 PM EST documented as of this encounter Care Teams Ski Patroller Relationship Specialty Start Date End Date Jose Valles, AIR CONDITIONING MECHANIC INDUSTRIAL-COBOL APPLICATION DEVELOPER [address] [place] [address] PCP - General Nurse Practitioner 07/18/22 documented as of this encounter
--- OUTSIDE RECORDS SUMMARY | 2024-10-22 14:46 | XMS_ITS | Clinical Summary ---
Author Organization [facility] Address [address] [place] [address] Care Team Providers Care Ladle Puller Name Role Phone Delmer Yadav DO Primary Care Provider [phone] Umer Ruelas DO Unavailable [phone] Allergies No known active allergies Medications loratadine (Claritin) 10 MG tablet Take 10 mg by mouth in the morning and 10 mg in the evening. Active Melatonin 10 MG capsule as directed Orally Active polyethylene glycol, PEG, 3350 (MiraLax) 17 GM/SCOOP powder as directed Orally Twice a day as needed Active hydroxychloroquin e (Plaquenil) 200 MG tablet Take 200 mg by mouth in the morning and 200 mg in the evening. 024 Active Vortioxetine HBr (Trintellix) 20 MG tabletIndications :Current mild episode of major depressive disorder without prior episode (HCC) (CMS/HCC) Take 1 tablet by mouth Daily 90 tablet 3 024 Active fluticasone (Flonase) 50 MCG/ACT nasal spray Administer 1 spray into each nostril Daily Shake gently. Before first use, prime pump. After use, clean tip and replace cap. Active lisinopril 20 MG tabletIndications :Essential hypertension (CMS/HCC) Take 1 tablet (20 mg) by mouth Daily 90 tablet 3 025 Active venlafaxine XR (Effexor XR) 75 MG 24 hr capsuleIndication s:Anxiety Take 1 capsule (75 mg) by mouth Daily Do not crush or chew. 90 capsule 1 025 Active meloxicam (Mobic) 15 MG tabletIndications :Arthritis Take 1 tablet (15 mg) by mouth Daily 90 tablet 1 025 Active glycopyrrolate (Robinul-Forte) 2 MG tabletIndications :Diaphoresis Take 1 tablet (2 mg) by mouth Daily 90 tablet 3 025 Active montelukast (Singulair) 10 MG tabletIndications :Allergic rhinitis, unspecified seasonality, unspecified trigger Take 1 tablet (10 mg) by mouth Daily 90 tablet 3 025 Active atorvastatin (Lipitor) 10 MG tabletIndications :Mixed hyperlipidemia (CMS/HCC) Take 1 tablet (10 mg) by mouth Daily 90 tablet 3 025 Active Multiple Vitamin (multivitamin) tablet Take 1 tablet by mouth Daily Active Creatinine powder 5 g Ac tive atomoxetine (Strattera) 40 MG capsuleIndication s:Attention and concentration deficit Take 1 capsule (40 mg) by mouth Daily Swallow capsule whole; do not open. If opened accidentally, do not touch eyes; wash hands immediately (product is an eye irritant). 30 capsule 025 Active Tirzepatide-Weigh t Management (Zepbound) 5 MG/0.5ML solution auto-injectorIndi cations:Attention and concentration deficit,KIRA (obstructive sleep apnea),Family history of diabetes mellitus (DM),Family history of heart disease,Abnormal weight gain,Abdominal obesity and metabolic syndrome,Elevated fasting insulin level with normal glucose (CMS/HCC),Essenti al hypertension (CMS/HCC),Mixed hyperlipidemia (CMS/HCC) Inject 5 mg under the skin 1 (one) time per week 2 mL 3 025 Active tiZANidine (Zanaflex) 4 MG tabletIndications :Muscle spasm Take 1 tablet (4 mg) by mouth at bedtime 30 tablet 025 Active tiZANidine (Zanaflex) 4 MG tablet Take 1 tablet by mouth at bedtime 024 2024 Discontinued(R eorder) atomoxetine (Strattera) 40 MG capsuleIndication s:Attention and concentration deficit Take 1 capsule (40 mg) by mouth Daily Swallow capsule whole; do not open. If opened accidentally, do not touch eyes; wash hands immediately (product is an eye irritant). 30 capsule 025 2024 Discontinued(R eorder) Tirzepatide-Weigh t Management (Zepbound) 2.5 MG/0.5ML solution auto-injectorIndi cations:KIRA (obstructive sleep apnea),Family history of diabetes mellitus (DM),Family history of heart disease,Abnormal weight gain,Abdominal obesity and metabolic syndrome,Elevated fasting insulin level with normal glucose (CMS/HCC),Essenti al hypertension (CMS/HCC),Mixed hyperlipidemia (CMS/HCC) Inject 2.5 mg under the skin 1 (one) time per week 2 mL 3 025 2024 Discontinued Active Problems Problem Noted Date Diagnosed Date Elevated fasting insulin level with normal gluco se 09/16/2024 Family history of diabetes mellitus (DM) Family history of heart disease 09/16/2024 Change in bowel function 11/13/2023 Constipation 11/13/2023 Family history of colon cancer 11/13/2023 Orthostatic hypotension 08/22/2023 KIRA (obstructive sleep apnea) 08/22/2023 Anxiety 08/10/2023 Body mass index (BMI) 33.0-33.9, adult Chronic rhinitis 08/10/2023 Fibromyalgia 08/10/2023 Generalized anxiety disorder 08/10/2023 PTSD (post-traumatic stress disorder) 08/10/2023 Hyperlipemia 08/10/2023 Keratosis pilaris 08/10/2023 Non-tobacco user 08/10/2023 Other bursal cyst, left hip 08/10/2023 Other obesity due to excess calories 08/10/2023 Tinnitus 07/31/2022 Dyspnea 07/19/2022 Acute electrocardiogram changes 07/18/2022 Bruxism 09/27/2020 Eustachian tube dysfunction 09/27/2020 Subacute sinusitis 09/27/2020 TMJ arthropathy 09/27/2020 Essential hypertension 06/28/2020 Hyperhidrosis 01/13/2020 Primary insomnia 12/25/2019 Encounters Date Type Department Care Team Description 10/22/2024 Orders Only [facility] [address] [place] [phone] Anselmo Potts PA Diarrhea of presumed infectious origin (Primary Dx) 10/21/2024 Telephone [facility] [address] [place] [phone] Gris Waldron MA 10/10/2024 Refill [facility] [address] [place] [phone] Delmer Yadav DO Muscle spasm (Primary Dx) 10/07/2024 11:00 AM EDT Office Visit [facility] [address] [place] [address] Anselmo Potts PA Attention and concentration deficit; KIRA (obstructive sleep apnea); Family history of diabetes mellitus (DM); Family history of heart disease; Abnormal weight gain; Abdominal obesity and metabolic syndrome; Elevated fasting insulin level with normal glucose (CMS/HCC); Essential hypertension (CMS/HCC); Mixed hyperlipidemia (CMS/HCC) 10/07/2024 Bamboo flowsheet [facility] [address] [place] [phone] Anselmo Potts PA 10/07/2024 Travel 09/16/2024 9:00 AM EDT Office Visit [facility] [address] [place] [phone] Anselmo Potts PA KIRA (obstructive sleep apnea) (Primary Dx); Family history of diabetes mellitus (DM); Family history of heart disease; Abnormal weight gain; Abdominal obesity and metabolic syndrome; Elevated fasting insulin level with normal glucose (CMS/HCC); Essential hypertension (CMS/HCC); Mixed hyperlipidemia (CMS/HCC) 09/16/2024 Bamboo flowsheet [facility] [address] [place] [phone] Anselmo Potts PA 09/16/2024 Travel 09/15/2024 Travel 09/15/2024 Results Follow-Up [facility] [address] [place] [phone] Anselmo Potts PA 08/26/2024 2:20 PM EDT Office Visit [facility] [address] [place] [phone] Anselmo Potts, PA Metabolic syndrome (Primary Dx); Obesity (BMI 30-39.9); Mixed hyperlipidemia (CMS/HCC); Primary hypertension (CMS/HCC); KIRA (obstructive sleep apnea); Family history of diabetes mellitus (DM) 08/26/2024 Bamboo flowsheet [facility] [address] [place] [address] Anselmo Potts PA 08/26/2024 Travel from Last 3 Months Immunizations Immunization Administration Dates Next Due DTP / HiB 06/29/1996,04/10/1996,02/11/1996 DTaP 08/19/1997,07/23/1996 Hep B, Unspecified 08/19/1997,02/11/1996, 996 Hep B, adult 10/13/2022 Hib (HbOC) 07/23/1996 Influenza, Unspecified 06/17/2019 Influenza, injectable, quadr ivalent, preservative free 03/18/2021,02/20/2020 Influenza, recombinant, quad rivalent, injectable, preservative free 03/27/2023 MMR 12/22/1996 OPV 07/23/1996,04/10/1996,02/11/1996 Pneumococcal Conjugate PCV 7 12/22/1996, 07/23/1996,04/10/1996,1995 Polio, Unspecified 07/23/1996,04/10/1996, 996 Tdap 10/13/2022 Varicella 12/22/1996 Family History Medical History Relation Name Comments Asthma Father Toy Guevara Bipolar disorder Father Toy Guevara Cancer Father Toy Guevara Bladder Diabetes Father Toy Guevara Heart attack Father Toy Guevara Hyperlipidemia Father Toy Guevara Hypertension Father Toy Guevara Parkinsonism Father Toy Guevara Stroke Father Toy Guevara Colon cancer Paternal Grandfather Diabetes Sister older sister reanna st got dx of Diabetes Relation Name Status Comments Brother Alive Father Toy Guevara Alive Mother Alive Paternal Grandfather Sister Alive Social History Tobacco Use Types Packs/Day Years Used Date Smoking Tobacco: Never Smokeless Tobacco: Never Tobacco Cessation:Counseling Given: Yes Alcohol Use Standard Drinks/Week Comments Yes 0 [...] often do you attend chur ch or hinduism services? Never 11/09/2023 Do you belong to [...] Recorded Patient Health Questionnaire-2 Score 0 10/07/2024 [facility] - Occupational Stress [...] any time in the past 12 m [facility], were you homeless or living in a correction (including now)? No 11/09/2023 Sex and Gender Information Value Date Recorded Sex Assigned at Male 09/07/2023 2:31 PM EDT Legal Sex Male 8:35 PM EDT Gender Identity Male 09/07/2023 2:31 PM EDT Sexual Orientation Long 09/07/2023 2: 31 PM EDT Last Filed Vital Signs Vital Sign Reading Time Taken Comments Blood Pressure 138/86 10/07/2024 11:09 AM EDT Pulse 101 10/07/2024 11:09 AM EDT Temperature 36.1 C (96.9 F) 10/07/2024 11:09 AM EDT Respiratory Rate 18 10/01/2023 2:33 PM EDT Oxygen Saturation 97% 10/07/2024 11:09 AM EDT Inhaled Oxygen Concentration - - Weight 117 kg (257 lb 12.8 oz) 10/07/2024 11:09 AM EDT Height 175.3 cm (5' 9 ) 09/16/2024 9:12 AM EDT Body Mass Index 38.07 09/16/2024 9:12 AM EDT Plan of Treatment Upcoming Encounters Date Type Department Care Team (Late st Contact Info) Description 11/04/2024 8:00 AM EDT Office Visit [facility] [address] [place] [address] Anselmo Potts PA [address] [place] [address] Health Maintenance Due Date Last Done Comments Influenza Vaccine Completed 03/21/2024, , 03/27/2023, Additional history exists Goals Goal Patient Goal Type Associated Problems Recent Progress Patient-Stated? Author Help patient manage antidepressant medication Care Plan Patient on antidepressant monitoring plan No Anselmo Potts PA Baseline PHQ-9 Care Plan Baseline PHQ-9 No Anselmo Potts PA Procedures Procedure Name Priority Date/Time Associated Diagnosis Comments HEMOGLOBIN A1C Routine 09/02/2024 8:12 AM EDT Metabolic syndrome Obesity (BMI 30-39.9) Mixed hyperlipidemia (CMS/HCC) Primary hypertension (CMS/HCC) KIRA (obstructive sleep apnea) Family history of diabetes mellitus (DM) INSULIN ANTIBODY Routine 09/02/2024 8:12 AM EDT Metabolic syndrome Obesity (BMI 30-39.9) Mixed hyperlipidemia (CMS/HCC) Primary hypertension (CMS/HCC) KIRA (obstructive sleep apnea) Family history of diabetes mellitus (DM) ZINC TRANSPORTER 8 ANTIBODY Routine 09/02/2024 8:11 AM EDT Metabolic syndrome Obesity (BMI 30-39.9) Mixed hyperlipidemia (CMS/HCC) Primary hypertension (CMS/HCC) KIRA (obstructive sleep apnea) Family history of diabetes mellitus (DM) IA-2 ANTIBODY Routine 09/02/2024 8:11 AM EDT Metabolic syndrome Obesity (BMI 30-39.9) Mixed hyperlipidemia (CMS/HCC) Primary hypertension (CMS/HCC) KIRA (obstructive sleep apnea) Family history of diabetes mellitus (DM) INSULIN Routine 09/02/2024 8:11 AM EDT Metabolic syndrome Obesity (BMI 30-39.9) Mixed hyperlipidemia (CMS/HCC) Primary hypertension (CMS/HCC) KIRA (obstructive sleep apnea) Family history of diabetes mellitus (DM) GLUTAMIC ACID DECARBOXYLASE Routine 09/02/2024 8:11 AM EDT Metabolic syndrome Obesity (BMI 30-39.9) Mixed hyperlipidemia (CMS/HCC) Primary hypertension (CMS/HCC) KIRA (obstructive sleep apnea) Family history of diabetes mellitus (DM) C-PEPTIDE Routine 09/02/2024 8:11 AM EDT Metabolic syndrome Obesity (BMI 30-39.9) Mixed hyperlipidemia (CMS/HCC) Primary hypertension (CMS/HCC) KIAR (obstructive sleep apnea) Family history of diabetes mellitus (DM) from Last 3 Months Results * Insulin antibody (09/02/2024 8:12 AM EDT) Pathologist [facility] INSULIN ANTIBODIES <5.0 uU/mL [facility] Comment: This test is also known as insulin autoantibody or IAA. This test was developed and its performance characteristics determined by [facility]. It has not been cleared or approved by the Food and Drug Administration. Reference Range: <5.0 Negative > or = 5.0 Positive Blood Venous blood specimen / Unknown 09/02/2024 8:12 AM EDT 09/02/2024 Narrative [facility] - 09/12/2024 6:07 AM EDT Performed at: 01 - [facility] [address] [place] [id number] Principal Software Architect: Jason Malloy MD, Phone: [phone] us Anselmo LAMBERT LAB BLOOD ORDERABLES Final Resul t [facility] * Hemoglobin A1c (09/02/2024 8:12 AM EDT) HgbA1C 5.0 4.8 - 5.6 % [facility] Comment: Prediabetes: 5.7 - 6.4 Diabetes: >6.4 Glycemic control for adults with diabetes: <7.0 Blood Venous blood specimen / Unknown 09/02/2024 8:12 AM EDT 09/02/2024 Narrative [facility] - 09/03/2024 6:07 AM EDT Performed at: - [facility] [address] [id number] Principal Software Architect: Rivera Carrillo PhD, Phone: [phone] Anselmo LAMBERT LAB BLOOD ORDERABLES Final Resul t Performing Organization Address [facility] de Phone Number [facility] * Ia-2 antibody (09/02/2024 8:11 AM EDT) Pathologist [facility] IA-2 AUTOANTIBODIES <7.5 U/mL [facility] Comment: Reference Range: <7.5 Negative > or = 7.5 Positive Blood Venous blood specimen / Unknown 09/02/2024 8:11 AM EDT 09/02/2024 Narrative [facility] - 09/11/2024 6:06 AM EDT Performed at: [facility] [address] [place] [id number] Principal Software Architect: Jason Malloy MD, Phone: [phone] Anselmo LAMBERT LAB BLOOD ORDERABLES Final Resul t Performing Organization Address [facility] de Phone Number [facility] * Zinc Transporter 8 Antibody (09/02/2024 8:11 AM EDT) Pathologist [facility] ZNT8 Antibodies <15 U/mL [facility] Comment: Reference Range: All Ages: <15 Negative > or =15 Positive Blood Venous blood specimen / Unknown 09/02/2024 8:11 AM EDT 09/02/2024 Narrative [facility] - 09/13/2024 6:07 AM EDT Performed at: - [facility] [address] [place] [id number] Principal Software Architect: Jason Malloy MD, Phone: [phone] Anselmo LAMBERT LAB BLOOD ORDERABLES Final Resul t Performing Organization Address City/[facility]/ZIP Co de Phone Number [facility] * (ABNORMAL) Insulin, fasting (09/02/2024 8:11 AM EDT) Insulin 35.1(H) 2.6 - 24.9 uIU/mL [facility] Blood Venous blood specimen / Unknown 09/02/2024 8:11 AM EDT 09/02/2024 Narrative [facility] - 09/11/2024 6:06 AM EDT Performed at: 02 - [facility] [id number] Principal Software Architect: Rivera Carrillo PhD, Phone: [phone] Anselmo LAMBERT LAB BLOOD ORDERABLES Final Resul t Performing Organization Address [facility] Co de Phone Number [facility] * Glutamic acid decarboxylase (09/02/2024 8:11 AM EDT) Pathologist [facility] REYNOLD-65 <5.0 0.0 - 5.0 U/mL [facility] Blood Venous blood specimen / Unknown 09/02/2024 8:11 AM EDT 09/02/2024 Narrative [facility] - 09/11/2024 6:06 AM EDT Performed at: [address] [id number] Principal Software Architect: Jabari Nayak MD, Phone: [phone] us Anselmo LAMBERT LAB BLOOD ORDERABLES Final Resul t [facility] * (ABNORMAL) C-peptide (09/02/2024 8:11 AM EDT) C-PEPTIDE, SERUM 4.5(H) 1.1 - 4.4 ng/mL [facility] Comment:C-Peptide reference interval is for fasting patients. Blood Venous blood specimen / Unknown 09/02/2024 8:11 AM EDT 09/02/2024 Narrative [facility] - 09/11/2024 6:06 AM EDT Performed at: 02 - [facility] [address] [id number] Principal Software Architect: Rivera Carrillo PhD, Phone: [phone] us Anselmo LAMBERT LAB BLOOD ORDERABLES Final Resul t [facility] from Last 3 Months Additional Health Concerns Active Problems Noted Date Diagnosed Date Patient on antidepressant monitoring plan 2023 Baseline PHQ-9 03/25/2024 Insurance [employer] Care Teams Ladle Puller Relationship Specialty Start Date End Date Delmer Yadav DO [address] [place] [address] PCP - General Family Medicine 09/07/23 Umer Ruelas DO [address] [place] [address] PCP - Medical [place] [employer] 11/26/19 05/27/99
--- OUTSIDE RECORDS SUMMARY | 2024-10-22 14:47 | XMS_ITS | Encounter Summary ---
Author Organization [facility] Address [address] [place] [address] Phone Care Team Providers Care Outboard Motorboat Operator Name Role Phone Anselmo Potts Primary Care Provider [phone] Encounter Details Date Type Department Care Team (Late st Contact Info) Description 08/09/2023 Scanned Document [facility] [address] [place] [address] Scanning, Generic Provider Social History Tobacco Use Types Packs/Day Years Used Date Smoking Tobacco: Never Assessed Sex and Gender Information Value Date Recorded Sex Assigned at Male 08/13/2023 8:51 AM EDT Legal Sex Male 1:49 PM EST Gender Identity Male 08/13/2023 8:51 AM EDT Sexual Orientation Long 08/13/2023 8: 51 AM EDT documented as of this encounter Plan of Treatment Not on file documented as of this encounter Procedures Procedure Name Priority Date/Time Associated Diagnosis Comments OUTSIDE IMAGING SCAN 08/09/2023 documented in this encounter Results * OUTSIDE IMAGING SCAN (08/09/2023) Anatomical Region Laterality Modality Other Narrative 08/09/2023 Ordered by an unspecified provider. us Generic Provider Scanning OUTSIDE SCAN Final Result documented in this encounter Visit Diagnoses Not on filedocumented in this encounter Care Teams Outboard Motorboat Operator Relationship Specialty Start Date End Date Anselmo Potts PA [address] [place] [address] PCP - General Family Medicine 08/22/23 documented as of this encounter
--- OUTSIDE RECORDS SUMMARY | 2024-10-22 14:47 | XMS_ITS | Patient Health Record ---
Author Organization [facility] Address [address] [place] [address] Care Team Providers Care Sugar Boiler Name Role Phone [facility], [facility] Primary Car e Provider Unavailable Re Avilez Unavailable [phone] Allergies No Known Allergies Reason For Referral No Information Medications Medication SIG (Take, Route, Frequency, Duration) Notes Start Date End Date Status Atorvastatin Calcium 10 MG 1 tablet Oral ly Once a day Unknown Ciprofloxacin-dexAMETHasone 0.3-0.1 % 4 drops into affected ear Otic Twice a day for 7 days 04/02/2023 Unknown Lisinopril 10 MG 1 tablet Orally Once a day Unknown Trintellix 20 MG 1 tablet Orally Once a day Unknown Claritin 10 MG 1 tablet Orally Once a day Unknown Glycopyrrolate 2 MG 1 tablet Orally twic e a day Unknown Wegovy 1 MG/0.5ML 0.5 mL Subcutaneous Unknown Wellbutrin XL 150 MG 1 tablet in the mor micheline Orally Once a day Unknown Immunizations Vaccine Route Administration Date Status Comme nts Flu Vaccine (Given in Past) Unspecified Unknown 04/02/2023 Administered Fluzone, 6mo & older, PFS (0.5mL Admin) IM Intramuscular 03/21/2024 Administered Pfizer Covid19 (12yr & up) Bryan (0.3mL) IM Intramuscular 03/27/2023 Administered Pfizer Covid19 Comirnaty (12yr and up) Bryan (0.3mL) IM Intramuscular 03/21/2024 Administered z2023 FluBLOK, 18 y/o & Older, Quad PDF (0.5mL Admin) IM Intramuscular 03/27/2023 Administered Social History Tobacco Use: Social History Observation Description Date Details (start date - stop date) Never Smoker NA - NA Tobacco Use Question Answer Notes Are you a Never smoker Problems Problem Type SNOMED Code ICD Code Onset Dates Problem Status W/U Status Risk Notes Problem Hypertension (55112124) Hypertension (I10) Active confirmed Problem Seasonal allergic rhinitis (863978016) Seasonal allergic rhinitis (J30.2) Active confirmed Problem 371032626 Obesity (BMI 30-39.9) (E66.9) Active confirmed Problem Generalized anxiety disorder (24995145) REYNOLD (generalized anxiety disorder) (F41.1) Active confirmed Problem Mixed connective tissue disease (269698128) Mixed connective tissue disease (M35.1) Active confirmed Problem hypercholesterolemia (disorder) (72783682) Hypercholesteremia (E78.00) Active confirmed Encounters Encounter Location Date Provider Diagnosis [address] [address] 03/21/2024 Re Bose Encounter for immunization Z23 Assessments Encounter Date Diagnosis (ICD Code) Assessment Notes Treatment Notes Treatment Clinical Notes Section Notes 03/21/2024 Encounter for immunization (ICD-10 - Z23) Seasonal Influenza Vaccine Seasonal Covid Vaccine VIS given and discussed, no concerns voiced; Flu vaccine administered. Pt instructed to stay in the clinic area for 20 minutes after the injection. Return PRN, ER if adverse reaction occurs. VIS given and discussed, no concerns voiced; Pt instructed to stay in the clinic area for 15-30 minutes after the injection. See scanned Vaccine Administration Consent Form Plan Of Treatment No Information Insurance Providers Payer Name Payer Address Payer Phone Subscriber Number Group Number Insured Name Patient Relationship to Insured Coverage Start Date Coverage End Date [facility] [address] [place] [address] [id number] Toy Thomas Self - patient is the insured Medical (General) History Medical History History ICD Code Hypertension I10 Hypercholesteremia E78.00 REYNOLD (generalized anxiety disorder) F41.1 Seasonal allergic rhinitis J30.2 Insulin resistance E88.819 Mixed connective tissue disease M35.1 Surgical History Surgery Date(Month/Year) left ankle surgery
--- NOTE | 2024-10-22 15:19 | ED.GENADUL1 ---
HPI HPI - General Adult General Chief complaint: Nausea/Vomiting/Diarrhea Stated complaint: DIARRHEA DEHYDRATION Time Seen by Provider: 10/22/24 14:46 Source: patient Mode of arrival: walk-in Limitations: no limitations History of Present Illness HPI narrative: 28-year-old male presents for a 1 week history of diarrhea. He has been having it 8 times a day and is watery, no blood. He works at a hospital in patient's experience. His has been having some diarrhea beginning recently as well. He has not been hospitalized nor has he been on any antibiotics recently. He is feeling dehydrated. Related Data Home Medications ?Medication ?Instructions ?Recorded ?Confirmed atomoxetine 40 mg capsule 40 mg PO DAILY 10/22/24 10/22/24 atorvastatin 10 mg tablet 10 mg PO DAILY 10/22/24 10/22/24 glycopyrrolate 2 mg tablet 2 mg PO DAILY 10/22/24 10/22/24 hydroxychloroquine 200 mg tablet 200 mg PO BID 10/22/24 10/22/24 lisinopril 20 mg tablet 20 mg PO DAILY 10/22/24 10/22/24 meloxicam 15 mg tablet 15 mg PO DAILY 10/22/24 10/22/24 montelukast 10 mg tablet 10 mg PO QAM 10/22/24 10/22/24 tirzepatide (weight loss) 2.5 5 mg subcut .WEEKLY 10/22/24 10/22/24 mg/0.5 mL subcutaneous pen injector (Zepbound) tizanidine 2 mg tablet 8 mg PO .QHS 10/22/24 10/22/24 venlafaxine 37.5 mg 75 mg PO DAILY 10/22/24 10/22/24 capsule,extended release 24 hr vortioxetine 20 mg tablet 20 mg PO DAILY 10/22/24 10/22/24 (Trintellix) Allergies Allergy/AdvReac Type Severity Reaction Status Date / Time No Known Drug Allergies Allergy Verified 10/22/24 14:42 Review of Systems ROS Narrative A ten point review of systems is negative except as noted above. PFSH PFSH Social History Little interest or pleasure in doing things: not at all Feeling down, depressed, or hopeless: not at all Exam Narrative Exam Narrative: Nurses note and vital signs reviewed and patient is not hypoxic. General: The patient appears well and in no apparent distress. Patient is resting comfortably on cart. Skin: Warm, dry, no pallor noted. There is no rash noted. Head: Normocephalic, atraumatic Eye: Normal conjunctiva, no drainage Ears, Nose, Mouth, and Throat: oral mucosa is moist. Nares patent. Cardiovascular: Regular Rate and Rhythm Respiratory: Patient is in no distress, no accessory muscle use, lungs are clear to auscultation, no wheezing, rales or rhonchi Back: non-tender GI: Soft and nontender Musculoskeletal: The patient has no evidence of calf tenderness, no pitting edema, symmetrical pulses noted bilaterally Neurological: A&O, normal speech Psychiatric: Cooperative Constitutional Vital Signs, click to edit/add: Last Vital Signs Temp 97.9 F 10/22/24 14:43 Pulse 100 H 10/22/24 14:43 Resp 18 10/22/24 14:43 BP 137/104 H 10/22/24 14:43 Pulse Ox 97 10/22/24 14:43 O2 Del Method Room Air 10/22/24 14:43 Course Vital Signs Vital signs: Vital Signs Temperature 97.9 F 10/22/24 14:43 Pulse Rate 100 H 10/22/24 14:43 Respiratory Rate 18 10/22/24 14:43 Blood Pressure 137/104 H 10/22/24 14:43 Pulse Oximetry 97 10/22/24 14:43 Oxygen Delivery Method Room Air 10/22/24 14:43 Temperature 97.9 F 10/22/24 14:43 Pulse Rate 100 H 10/22/24 14:43 Respiratory Rate 18 10/22/24 14:43 Blood Pressure 137/104 H 10/22/24 14:43 Pulse Oximetry 97 10/22/24 14:43 Oxygen Delivery Method Room Air 10/22/24 14:43 Medical Decision Making MDM Narrative Medical decision making narrative: Blood work is essentially normal. Stool culture and C. difficile are pending and he is able to be discharged home and was given a work note. Treatment diagnosis and follow-up were discussed with the patient. Differential Diagnosis Differential Diagnosis: Dehydration, diarrhea, C. difficile Lab Data Lab results reviewed: Yes I reviewed the patient's lab results Labs: Lab Results 10/22/24 Range/Units 15:37 WBC 11.2 H (4.0-11.0) 10^3/uL RBC 5.33 (4.70-6.10) 10^6/uL Hgb 15.7 (14.0-18.0) g/dL Hct 45.9 (42.0-54.0) % MCV 86.1 (80.0-94.0) fL MCH 29.5 (25.9-34.0) pg MCHC 34.2 (29.9-35.2) g/dL RDW 12.3 (11.0-15.0) % Plt Count 281 (150-450) 10^3/uL MPV 8.8 L (9.5-13.5) fL Neut % (Auto) 64.8 (43.0-75.0) % Lymph % (Auto) 23.0 (20.5-60.0) % [place] % (Auto) 9.7 (1.7-12.0) % Eos % (Auto) 1.3 (0.9-7.0) % Baso % (Auto) 0.7 (0.2-2.0) % Neut # (Auto) 7.2 H (1.4-6.5) 10^3/uL Lymph # (Auto) 2.6 (1.2-3.8) 10^3/uL [place] # (Auto) 1.1 H (0.3-0.8) 10^3/uL Eos # (Auto) 0.1 (0.0-0.7) 10^3/uL Baso # (Auto) 0.1 (0.0-0.1) 10^3/uL Abs Immat Gran (auto) 0.06 H (0.00-0.03) 10^3/uL Imm/Tot Granulo (auto) 0.5 (0.0-0.5) % Sodium 139 (136-145) mmol/L Potassium 4.5 (3.5-5.1) mmol/L Chloride 103 (98-107) mmol/L Carbon Dioxide 22.8 (21.0-32.0) mmol/L Anion Gap 17.7 BUN 10.0 (7.0-18.0) mg/dL Creatinine 0.91 (0.70-1.30) mg/dL Est GFR ( Amer) >60 (>=60 mL/min/1.73m^2) Est GFR (Non-Af Amer) >60 (>=60 mL/min/1.73m^2) BUN/Creatinine Ratio 11.0 Glucose 87 (74-106) mg/dL Calcium 9.3 (8.5-10.1) mg/dL Discharge Plan Discharge Chief Complaint: Nausea/Vomiting/Diarrhea Clinical Impression: Diarrhea Patient Disposition: Home, Self-Care Time of Disposition Decision: 16:47 Condition: Good Mode of Transportation: Private Vehicle Prescriptions / Home Meds: No Action atomoxetine 40 mg capsule 40 mg PO DAILY atorvastatin 10 mg tablet 10 mg PO DAILY glycopyrrolate 2 mg tablet 2 mg PO DAILY hydroxychloroquine 200 mg tablet 200 mg PO BID lisinopril 20 mg tablet 20 mg PO DAILY meloxicam 15 mg tablet 15 mg PO DAILY montelukast 10 mg tablet 10 mg PO QAM Zepbound 2.5 mg/0.5 mL pen injector 5 mg SUBCUT .WEEKLY Rx Instructions: MONDAYS tizanidine 2 mg tablet 8 mg PO .QHS venlafaxine 37.5 mg capsule,extended release 24hr 75 mg PO DAILY Trintellix 20 mg tablet 20 mg PO DAILY Print Language: Egyptian Instructions: Acute Diarrhea (ED) Referrals: Anselmo Potts PA [Primary Care Provider] - 1 week
[2024-10-22] MEDS: 0.9 % SODIUM CHLORIDE 1,000 ML 1000 ML IV (15:33)
[2024-10-22] MEDS: ONDANSETRON PF 4 MG/2 ML VIAL IV (15:33)
[2024-10-22 15:51] LABS: Basophils Absolute Auto 0.1 10^3/uL (0.0-0.1); Basophils Percent Auto 0.7 % (0.2-2.0); Eosinophils Absolute Auto 0.1 10^3/uL (0.0-0.7); Eosinophils Percent Auto 1.3 % (0.9-7.0); Hematocrit 45.9 % (42.0-54.0); Hemoglobin 15.7 g/dL (14.0-18.0); Immature Granulocytes Abs Auto 0.06 10^3/uL (0.00-0.03); Immature Granulocytes Pct Auto 0.5 % (0.0-0.5); Lymphocytes Absolute Auto 2.6 10^3/uL (1.2-3.8); Mean Corpuscular HGB Conc 34.2 g/dL (29.9-35.2); Mean Corpuscular Hemoglobin 29.5 pg (25.9-34.0); Mean Corpuscular Volume 86.1 fL (80.0-94.0); Mean Platelet Volume 8.8 fL (9.5-13.5); Monocytes Absolute Auto 1.1 10^3/uL (0.3-0.8); Monocytes Percent Auto 9.7 % (1.7-12.0); Neutrophils Absolute Auto 7.2 10^3/uL (1.4-6.5); Neutrophils Percent Auto 64.8 % (43.0-75.0); Platelet Count 281 10^3/uL (150-450); Red Blood Count 5.33 10^6/uL (4.70-6.10); Red Cell Distribution Width 12.3 % (11.0-15.0); White Blood Count 11.2 10^3/uL (4.0-11.0)
[2024-10-22 15:59] LABS: Anion Gap 17.7; Calcium 9.3 mg/dL (8.5-10.1); Carbon Dioxide 22.8 mmol/L (21.0-32.0); Chloride 103 mmol/L (98-107); Estimated GFR (African America >60 (>=60 mL/min/1.73m^2); Estimated GFR (Non-African Ame >60 (>=60 mL/min/1.73m^2); Glucose 87 mg/dL (74-106); Potassium 4.5 mmol/L (3.5-5.1); Sodium 139 mmol/L (136-145)
== END 2024-10-22 17:08 | disposition home or self-care (01) ==
PROVIDERS: Emergency Provider Emergency Medicine; PCP Physician Assistant
DX: R19.7 Diarrhea, unspecified (principal)
CPT/HCPCS: 36415; 80048; 85025; 87045; 87046; 87427; 87493; 96361; 96374; 99285; J2405

== ENCOUNTER 2024-10-23 10:38 | Outpatient (OUT) | payer OTHER, SELFPAY ==
--- OUTSIDE RECORDS SUMMARY | 2024-10-23 10:01 | XMS_ITS | Encounter Summary ---
Author Organization [facility] Address [address] [place] [address] Care Team Providers Care Digital Sales Assistant Name Role Phone Delmer Yadav DO Primary Care Provider [phone] Umer Ruelas DO Unavailable [phone] Reason for Visit * Reason Onset Date Comments Med Refill 09/21/2023 Encounter Details Date Type Department Care Team (Late st Contact Info) Description 09/21/2023 Refill [facility] [address] [facility] [address] [place] [address] Anselmo Potts PA [address] [facility] [address] [place], [place] [id number] Left hip pain Social History Tobacco Use [...] [address] [place] [address] Anselmo Potts PA [address] [place] [address] documented as of this encounter Visit Diagnoses Diagnosis Left hip pain Pain in joint, pelvic region and thigh documented in this encounter Care Teams Digital Sales Assistant Relationship Specialty Start Date End Date Delmer Yadav DO [address] [facility] [address] [facility] [address] [place] [address] PCP - General Family Medicine 09/07/23 Umer Ruelas DO [address] [facility] [address] [place] [address] PCP - Medical [place] [employer] 11/26/19 05/27/99 documented as of this encounter
--- OUTSIDE RECORDS SUMMARY | 2024-10-23 10:01 | XMS_ITS | Encounter Summary ---
Author Organization [facility] Address [address] [place] [address] Care Team Providers Care Oven Operator Automatic Name Role Phone Anselmo Potts PA-C Unavailable [phone] Anselmo Potts PA-C Primary Care Provider [phone] Source Comments In the event this information is protected by the Federal Confidentiality of Alcohol and Drug AbusePatient Records regulations: The Federal rules restrict any use of the information to criminally investigate or prosecute any alcohol or drug abuse patient.[facility] Encounter Details Date Type Department Care Team (Late st Contact Info) Description 08/22/2024 Patient Msg Endocrinology [address] [place], [place] [id number] Provider, Ccf Message from [facility] Torrie Estrada Social History Tobacco Use [...] is lower risk 4 10/01/2023 Data from: https://www.neighborhoodatlas.medicine.[facility].edu/. Last address used for calculation [address] [...] 05/26/2025 2:00 PM EST Office Visit Rheumatology [address] [place] [address] Margarita Eugene MD [address] [place], [place] [phone] follow up documented as of this encounter Visit Diagnoses Not on filedocumented in this encounter Care Teams Oven Operator Automatic Relationship Specialty Start Date End Date Anselmo Potts PA-C [address] [place] [address] PCP - General Physician Content Architect 05/20/24 Anselmo Potts PA-C [address] [place] [address] Referring Physician Content Architect 09/23/23 documented as of this encounter
--- OUTSIDE RECORDS SUMMARY | 2024-10-23 10:01 | XMS_ITS | Encounter Summary ---
Author Organization [facility] Address [address] [place] [address] Phone Care Team Providers Care President [employer] Name Role Phone Anselmo Potts Primary Care Provider [phone] Encounter Details Date Type Department Care Team (Latest Contact Info) Description 10/08/2023 Transcribe Orders [facility] [address] [place] [address] Rachid Mcdonald MD [address] [address] Constipation (Primary Dx) Social History Tobacco Use [...] constipation documented in this encounter Care Teams President [employer] Relationship Specialty Start Date End Date Anselmo Potts PA [address] [place] [id number] PCP - General Family Medicine 08/22/23 documented as of this encounter
--- OUTSIDE RECORDS SUMMARY | 2024-10-23 10:01 | XMS_ITS | Encounter Summary ---
Author Organization [facility] Address [address] [place] [address] Care Team Providers Care Marketing Services Vice President Name Role Phone Delmer Yadav DO Primary Care Provider [phone] Umer Ruelas DO Unavailable [phone] Encounter Details Date Type Department Care Team (Late st Contact Info) Description 10/22/2024 Abstract [facility] [address] [facility] [address] [place] [address] Anselmo Potts PA [address] [facility] [address] [place] [address] Social History Tobacco Use Types Packs/Day Years [...] often do you attend chur ch or orthodoxy services? Never 11/09/2023 Do you belong to any clubs o r organizations such as jew groups, unions, fraternal or athletic groups, or [...] Recorded Patient Health Questionnaire-2 Score 0 10/07/2024 [facility] - Occupational [...] any time in the past 12 m [facility], were you homeless or living in [...] [address] [place] [address] Anselmo Potts PA [address] [place] [address] documented as of this encounter Goals Goal [...] documented as of this encounter Care Teams Marketing Services Vice President Relationship Specialty Start Date End Date Delmer Yadav DO [address] [place] [address] PCP - General Family Medicine 09/07/23 Umer Ruelas DO [address] [place] [address] PCP - Medical [place] Commercial 11/26/19 05/27/99 documented as of this encounter
--- OUTSIDE RECORDS SUMMARY | 2024-10-23 10:01 | XMS_ITS | Patient Health Record ---
Author Organization [facility] Address [address] [place] [address] Care Team Providers Care Rail Maintenance Worker Name Role Phone DelgadoMadeleine Primary Care Provider [phone] Allergies No Known Allergies Reason For Referral [...] Problem Status W/U Status Risk Notes Problem 14546932223804 Morbid (severe) obesity due to excess calories (E66.01) Active confirmed Problem 216623286 Other obesity du e to excess calories (E66.09) Active confirmed Problem 748886389 Fibromyalgia (M79.7) Active confirmed Problem 93434208 Vitamin D defici ency (E55.9) Active confirmed Problem 62689932 Dysfunction of b oth eustachian tubes (H69.83) Active confirmed Problem 14014658 Allergic sinusit is (J30.9) Active confirmed Problem 60933255 Constipation, unspecified constipation type (K59.00) Active confirmed Problem 35117129 Fatigue, unspeci fied type (R53.83) Active confirmed Problem 27892979 Chronic fatigue (R53.82) Active confirmed Problem 219121473 Insomnia, unspec ified type (G47.00) Active confirmed Problem 499189421 Mild episode of recurrent major depressive disorder (F33.0) Active confirmed Problem 42210443 Arthralgia, unspecified joint (M25.50) Active confirmed Problem 65131630 Hypercholesterol emia (E78.00) Active confirmed Problem 057424927 BMI 33.0-33.9,ad ult (Z68.33) Active confirmed Problem 620591416 ROBLES positive (R76.8) Active confirmed Problem 17626498 REYNOLD (generalized anxiety disorder) (F41.1) Active confirmed Problem 795530030 Body mass index [BMI] 33.0-33.9, adult (Z68.33) Active confirmed Problem 828682836 Body mass index [BMI] 37.0-37.9, adult (Z68.37) Active confirmed Problem 005851602 Obesity, unspeci fied (E66.9) Inactive confirmed Problem 880720419 Body mass index [BMI] 35.0-35.9, adult (Z68.35) Inactive confirmed Plan Of Treatment No Information Insurance Providers Payer Name Payer Address Payer Phone Subscriber Number Group Number Insured Name Patient Relationship to Insured Coverage Start Date Coverage End Date [employer] PPO [address] [place] [address] [id number] MALKA ALEJANDRO Self - patient is the insured 2 [employer] CLAIMS [address] [address] [place] [address] [id number] MALKA ALEJANDRO Self - patient is the insured 3 Medications Administered Medication Instructions Date of Administration Dosage Notes Kenalog 04/26/2023 40 mg Medical (General) History Medical History History ICD Code hypertension allergies PTSD anxiety CHRONIC CONSTIPATION EUSTACIAN TUBE DISFUNCTION Surgical History Surgery Date(Month/Year) left ankle 06/2020 Hospitalization History Reason Date(Month/Year) CHEST PAIN 06/2022 see surgical
--- OUTSIDE RECORDS SUMMARY | 2024-10-23 10:01 | XMS_ITS | Clinical Summary ---
Author Organization [facility] Address [address] [place] [address] Care Team Providers Care Power System Electrical Engineer Name Role Phone Anselmo Potts PA-C Unavailable [phone] Anselmo Potts PA-C Primary Care Provider [phone] Allergies No known active allergies Medications atorvastatin [...] Department Care Team Description 10/03/2024 Refill Rheumatology [address] [place] [address] Donnell Null, CYN.MANUFACTURING ACCOUNTANT Refill Request 09/23/2024 Telephone Endocrinology [address] [place] [address] Marco Johnson V, MD Appointment 09/10/2024 Get Medical Advice Rheumatology [address] [place] [address] Asmita Luong MD Change in flare symptoms 09/08/2024 Telephone Rheumatology [address] [place] [address] Asmita Luong MD Joint Pain 08/22/2024 9:00 AM EDT [facility] Endocrinology [address] [place], [place] [id number] Karlene Alfaro RD Class 2 severe obesity with serious comorbidity and body mass index (BMI) of 39.0 to 39.9 in adult, unspecified obesity type (HCC) (Primary Dx); Impaired fasting glucose; BMI 39.0-39.9,adult; Family history of diabetes mellitus type II 08/22/2024 Patient Msg Endocrinology [address] [place] [address] Provider, Ccf Message from [facility] DietitianTorrie 08/22/2024 Travel from Last 3 [...] is lower risk 4 10/01/2023 Data from: https://www.neighborhoodatlas.medicine.[facility].edu/. Last address used for calculation [address] [place] [address] 10/01/2023 Sex and Gender Information Value Date [...] 05/26/2025 2:00 PM EST Office Visit Rheumatology [address] [place] [address] Margarita Eugene MD [address] [place] [address] follow up Health Maintenance Due [...] , 03/18/2021, Additional [place] [address] [employer] Care Teams Power System Electrical Engineer Relationship Specialty Start Date End Date Anselmo Potts PA-C [address] [place] [address] PCP - General Physician Barrel Polisher Inside 05/20/24 Anselmo Potts PA-C [address] [place] [address] Referring Physician Barrel Polisher Inside 09/23/23
--- OUTSIDE RECORDS SUMMARY | 2024-10-23 10:01 | XMS_ITS | Clinical Summary ---
Author Organization [facility] Address [address] [place] [address] Phone Care Team Providers Care Measurement And Verification Engineer Name Role Phone Anselmo Potts Primary Care Provider [phone] Allergies No known active allergies Medications [...] age to complete this topic Insurance MEDICAL [facility] MED MEDICAL [facility] MED Care Teams Measurement And Verification Engineer Relationship Specialty Start Date End Date Anselmo Potts PA [address] [place] [address] PCP - General Family Medicine 08/22/23
--- OUTSIDE RECORDS SUMMARY | 2024-10-23 10:01 | XMS_ITS | Encounter Summary ---
Author Organization [facility] Address [address] [place] [address] Care Team Providers Care Health Education Specialist Name Role Phone Delmer Yadav DO Primary Care Provider [phone] Umer Ruelas DO Unavailable [phone] Encounter Details Date Type Department Care Team (Late st Contact Info) Description 10/08/2023 Abstract [facility] [address] [facility] 230 [place] [address] Anselmo Potts PA [address] [facility] [address] [place] [address] Social History Tobacco Use Types Packs/Day Years [...] [address] [place] [address] Anselmo Potts PA [address] [place] [address] documented as of this encounter Visit Diagnoses Not on filedocumented in this encounter Care Teams Health Education Specialist Relationship Specialty Start Date End Date Delmer Yadav DO [address] [facility] [address] [place] [address] PCP - General Family Medicine 09/07/23 Umer Ruelas DO [address] [facility] [address] [place] [address] PCP - Medical [place] [employer] 11/26/19 05/27/99 documented as of this encounter
--- OUTSIDE RECORDS SUMMARY | 2024-10-23 10:02 | XMS_ITS | Encounter Summary ---
Author Organization [facility] Address [id number] [address] [place] [address] Care Team Providers Care Sonographer Name Role Phone Jose Valles CUSTODIAN ATHLETIC EQUIPMENT-RAW STOCK DYEING MACHINE TENDER Primary Care Provider [phone] Reason for Visit * Reason Comments Med Refill Encounter Details Date Type Department Care Team (Late st Contact Info) Description 04/22/2021 Refill [facility] [address] [place] [address] Latisha Valdivia, PA-C [address] [facility] [address] [place], [place] [id number] Arthropathy of temporomandibular joint, unspecified laterality Social History Tobacco Use Types Packs/Day Years [...] neighbors? More than three times a week 01/28/2021 How often do you get togethe r with friends or relatives? Once a week 01/28/2021 How often do you attend chur ch or temple services? Never 01/28/2021 Do you belong to any clubs o r organizations such as methodist groups, unions, fraternal or athletic groups, or school groups? Yes 01/28/2021 How often do you attend meet ings of the clubs or organizations you belong to? More than 4 times per year 01/28/2021 Are you , , di vorced, , never , or living with a partner? 01/28/2021 AUDIT-C Answer Date Recorded Q1: How often do you have a drink containing alc ohol? Monthly or less 01/28/2021 Q2: How many drinks containi ng alcohol do you have on a typical day when you are drinking? 1 or 2 01/28/2021 Q3: How often do you have si x or more drinks on one occasion? Never 01/28/2021 Overall Financial Resource Strain (CARDIA) Answe r Date Recorded How hard is it for you to pa y for the very basics like food, housing, medical care, and heating? Not hard at all 01/28/2021 PHQ-2 Answer Date Recorded Total Score 0 01/28/2021 [facility] of Occupat ional Health - Occupational Stress Questionnaire Answer Date Recorded Do you feel stress - tense, restless, nervous, or anxious, or unable to sleep at night because your mind is troubled all the time - these days? To some extent 01/28/2021 Exercise Vital Sign Answer Date Recorde d On average, how many days pe r week do you engage in moderate to strenuous exercise (like a brisk walk)? 5 days 01/28/2021 On average, how many minutes do you engage in exercise at this level? 40 min 01/28/2021 PRAPARE - Transportation Answer Date Re corded In the past 12 months, has l ack of transportation kept you from medical appointments or from getting medications? No 01/26 In the past 12 months, has l ack of transportation kept you from meetings, work, or from getting things needed for daily living? No 02/07/2021 Childcare Answer Date Recorded Do problems getting child ca re make it difficult for you to work or study? No 01/28/2021 Employment Answer Date Recorded Do you need help finding a l ocal career center and/or a training program? No 01/28/2021 Purpose - Life Answer Date Recorded I have a purpose and direction in my life. Stron gly Agree 01/28/2021 Education Answer Date Recorded What is the [...] have Coronavirus / COVID-19? No / Unsure 04/14/2021 2:57 PM EST documented as of this encounter Plan of Treatment Not on file documented as of this encounter Visit Diagnoses Diagnosis Arthropathy of temporomandibular joint, unspecified laterality documented in this encounter Additional Health Concerns Infection Onset Date Last Indicated Resolved Time COVID-19 Rule-Out 07/18/2022 07/18/2022 07/18/2022 6:34 PM EST Assessment Noted Time PHQ-9 Depression Total Score: 0 01/29/20 11:06 AM EDT A Body Mass Index follow-up plan has been documented for the patient 02/04/2021 2:15 PM EDT documented as of this encounter Care Teams Sonographer Relationship Specialty Start Date End Date Jose Valles, CUSTODIAN ATHLETIC EQUIPMENT-RAW STOCK DYEING MACHINE TENDER [address] [place] [address] PCP - General Nurse Practitioner 07/18/22 documented as of this encounter
--- OUTSIDE RECORDS SUMMARY | 2024-10-23 10:02 | XMS_ITS | Encounter Summary ---
Author Organization [facility] Address [address] [place] [address] Care Team Providers Care Senior Instrumentation Engineer Name Role Phone Anselmo Potts PA-C Unavailable [phone] Anselmo Potts PA-C Primary Care Provider [phone] Source Comments In the event this information is protected by the Federal Confidentiality of Alcohol and Drug AbusePatient Records regulations: The Federal rules restrict any use of the information to criminally investigate or prosecute any alcohol or drug abuse patient.[facility] Encounter Details Date Type Department Care Team (Late st Contact Info) Description 05/12/2024 Patient Msg Endocrinology [address] [place] [address] Arabella Manning LSW [address] [place] [address] Welcome Group--Please Read Social History [...] is lower risk 4 10/01/2023 Data from: https://www.neighborhoodatlas.medicine.[facility].edu/. Last address used for calculation [address] [...] 05/26/2025 2:00 PM EST Office Visit Rheumatology [address] [place] [address] Margarita Eugene MD [address] [place], [place] [id number] follow up documented as of this encounter Visit Diagnoses Not on filedocumented in this encounter Care Teams Senior Instrumentation Engineer Relationship Specialty Start Date End Date Anselmo Potts PA-C [address] [place] [address] PCP - General Physician Pesticide Chemist 05/20/24 Anselmo Potts PA-C [address] [place] [address] Referring Physician Pesticide Chemist 09/23/23 documented as of this encounter
--- OUTSIDE RECORDS SUMMARY | 2024-10-23 10:02 | XMS_ITS | Encounter Summary ---
Author Organization [facility] Address [address] [place] [address] Phone Care Team Providers Care Employment Coach Name Role Phone Anselmo Potts Primary Care Provider [phone] Encounter Details Date Type Department Care Team (Late st Contact Info) Description 08/09/2023 Scanned Document [facility] [address] [place] [address] Scanning, Generic Provider Social History Tobacco Use [...] on filedocumented in this encounter Care Teams Employment Coach Relationship Specialty Start Date End Date Anselmo Potts PA [address] [place] [address] PCP - General Family Medicine 08/22/23 documented as of this encounter
--- OUTSIDE RECORDS SUMMARY | 2024-10-23 10:02 | XMS_ITS | Encounter Summary ---
Author Organization [facility] Address [address] [place] [address] Care Team Providers Care Web Graphic Designer Name Role Phone Anselmo Potts PA-C Unavailable [phone] Anselmo Potts PA-C Primary Care Provider [phone] Source Comments In the event this information is protected by the Federal Confidentiality of Alcohol and Drug AbusePatient Records regulations: The Federal rules restrict any use of the information to criminally investigate or prosecute any alcohol or drug abuse patient.[facility] Encounter Details Date Type Department Care Team (Late st Contact Info) Description 05/12/2024 Patient Msg Endocrinology [address] [place] [address] Provider, Cc Endocrine Psychology Welcome [...] is lower risk 4 10/01/2023 Data from: https://www.neighborhoodatlas.[facility]/. Last address used for calculation [address] [...] 05/26/2025 2:00 PM EST Office Visit Rheumatology [address] [place] [address] Margarita Eugene MD [address] [place], [place] [phone] follow up documented as of this encounter Visit Diagnoses Not on filedocumented in this encounter Care Teams Web Graphic Designer Relationship Specialty Start Date End Date Anselmo Potts PA-C [address] [place] [address] PCP - General Physician Benefits Manager 05/20/24 Anselmo Potts PA-C [address] [place] [address] Referring Physician Benefits Manager 09/23/23 documented as of this encounter
--- OUTSIDE RECORDS SUMMARY | 2024-10-23 10:02 | XMS_ITS | Encounter Summary ---
Author Organization [facility] Address [address] [place] [address] Care Team Providers Care Journalism Internship Name Role Phone Delmer Yadav DO Primary Care Provider [phone] Umer Ruelas DO Unavailable [phone] Encounter Details Date Type Department Care Team (Late st Contact Info) Description 06/27/2024 Abstract [facility] [address] [facility] [address] [place] [address] Delmer Yadav, [address] [facility] [address] [place], [place] [address] Social History Tobacco Use Types Packs/Day Years [...] often do you attend chur ch or scientology services? Never 11/09/2023 Do you belong to [...] Recorded Patient Health Questionnaire-2 Score 0 05/16/2024 [facility] of Occupat ional Health - Occupational [...] any time in the past 12 m [facility], were you homeless or living in a long term (including now)? No 11/09/2023 Sex and Gender [...] [address] [place] [address] Anselmo Potts PA [address] [place] [address] documented as of this encounter Goals Goal [...] documented as of this encounter Care Teams Journalism Internship Relationship Specialty Start Date End Date Delmer Yadav DO [address] [place] [address] PCP - General Family Medicine 09/07/23 Umer Ruelas DO [address] [place] [address] PCP - Medical [place] [employer] 11/26/19 05/27/99 documented as of this encounter
--- OUTSIDE RECORDS SUMMARY | 2024-10-23 10:02 | XMS_ITS | Encounter Summary ---
Author Organization [facility] Address [address] [place] [address] Care Team Providers Care Airline Radio Operator Name Role Phone Anselmo Potts PA-C Unavailable [phone] Anselmo Potts PA-C Primary Care Provider [phone] Source Comments In the event this information is protected by the Federal Confidentiality of Alcohol and Drug AbusePatient Records regulations: The Federal rules restrict any use of the information to criminally investigate or prosecute any alcohol or drug abuse patient.[facility] Encounter Details Date Type Department Care Team (Late st Contact Info) Description 05/17/2024 Patient Msg Endocrinology [address] [place] [address] Marco Johnson V, MD [address] [place] [address] labs Social History Tobacco Use [...] is lower risk 4 10/01/2023 Data from: https://www.neighborhoodatlas.medicine.[facility].edu/. Last address used for calculation [address] 10/01/2023 Sex and Gender Information Value Date Recorded Sex Assigned at Not on file Legal Sex Male 6:38 PM EST Gender Identity Male 07/03/2024 1:34 PM EST Sexual Orientation Not on file documented as of this encounter Miscellaneous Notes * Telephone Encounter - Zulema Scott MA - 06/06/2024 9:34 AM EST Attempted prior authorization via [employer]. Received response that Olga had been denied on 03/27/2024. documented in this encounter Plan of Treatment Upcoming Encounters Date Type Department Care Team (Late st Contact Info) Description 05/26/2025 2:00 PM EST Office Visit Rheumatology [address] [place] [address] Margarita Eugene MD [address] [place], [place] [phone] follow up documented as of this encounter Visit Diagnoses Not on filedocumented in this encounter Care Teams Airline Radio Operator Relationship Specialty Start Date End Date Anselmo Potts PA-C [address] [place] [address] PCP - General Physician Regional Education Coordinator 05/20/24 Anselmo Potts PA-C [address] [place] [address] Referring Physician Regional Education Coordinator 09/23/23 documented as of this encounter
--- OUTSIDE RECORDS SUMMARY | 2024-10-23 10:02 | XMS_ITS | Encounter Summary ---
Author Organization [facility] Address [address] [place] [address] Care Team Providers Care Manager E Commerce Name Role Phone Anselmo Potts PA-C Unavailable [phone] Anselmo Potts PA-C Primary Care Provider [phone] Source Comments In the event this information is protected by the Federal Confidentiality of Alcohol and Drug AbusePatient Records regulations: The Federal rules restrict any use of the information to criminally investigate or prosecute any alcohol or drug abuse patient.[facility] Encounter Details Date Type Department Care Team (Late st Contact Info) Description 05/13/2024 Get Medical Advice Endocrinology [address] [place] [address] Marco Johnson V, MD [address] [place] [address] Dexamethasone Social History Tobacco Use [...] is lower risk 4 10/01/2023 Data from: https://www.neighborhoodatlas.medicine.[facility].edu/. Last address used for calculation [address] [...] 05/26/2025 2:00 PM EST Office Visit Rheumatology [address] [place] [address] Margarita Eugene MD [address] [place], [place] [address] follow up documented as of this encounter Visit Diagnoses Diagnosis Class 2 severe obesity with serious comorbidity and body mass index (BMI) of 39.0 to 39.9 in adult, unspecified obesity type (HCC) documented in this encounter Care Teams Manager E Commerce Relationship Specialty Start Date End Date Anselmo Potts PA-C [address] [place] [address] PCP - General Physician Third Rigger 05/20/24 Anselmo Potts PA-C [address] [place] [address] Referring Physician Third Rigger 09/23/23 documented as of this encounter
--- OUTSIDE RECORDS SUMMARY | 2024-10-23 10:02 | XMS_ITS | Encounter Summary ---
Author Organization [facility] Address [address] [place] [address] Care Team Providers Care Souvenir Assembler Name Role Phone Anselmo Potts PA-C Unavailable Anselmo Potts PA-C Primary Care Provider [phone] Source Comments In the event this information is protected by the Federal Confidentiality of Alcohol and Drug AbusePatient Records regulations: The Federal rules restrict any use of the information to criminally investigate or prosecute any alcohol or drug abuse patient.[facility] Encounter Details Date Type Department Care Team (Late st Contact Info) Description 11/19/2023 Patient [facility] [address] [place] [address] Ghazala Davis RPh At your next appointment, choose [facility]. Social History Tobacco Use Types Packs/Day Years Used Date Smoking Tobacco: Never Assessed PHQ-2 Answer Date Recorded PHQ-2 score 0 09/27/2023 Area Deprivation Index Answer Date Chandler rded National Score (1-100), lower number is lower ri sk 61 10/01/2023 State Score (1-10), lower number is lower risk 4 10/01/2023 Data from: https://www.neighborhoodatlas.medicine.[facility].edu/. Last address used for calculation [place] [...] 05/26/2025 2:00 PM EST Office Visit Rheumatology [address] [place] [address] Margarita Eugene MD [address] [place] [address] follow up documented as of this encounter Visit Diagnoses Not on filedocumented in this encounter Care Teams Souvenir Assembler Relationship Specialty Start Date End Date Anselmo Potts PA-C [address] [place] [address] PCP - General Physician School Office Manager 05/20/24 Anselmo Potts PA-C [address] [place] [address] Referring Physician School Office Manager 09/23/23 documented as of this encounter
--- OUTSIDE RECORDS SUMMARY | 2024-10-23 10:02 | XMS_ITS | Clinical Summary ---
Author Organization [facility] Address [address] [place] [address] Care Team Providers Care Mineral Industry Teacher Name Role Phone Delmer Yadav DO Primary Care Provider [phone] Umer Ruelas DO Unavailable [phone] Allergies No known active allergies Medications loratadine [...] Date Type Department Care Team Description 10/22/2024 Abstract [facility] [address] [place] [address] Anselmo Potts PA 10/22/2024 Orders Only [facility] [address] [place] [address] Anselmo Potts PA Diarrhea of presumed infectious origin (Primary Dx) 10/21/2024 Telephone [facility] [address] [place] [address] Gris Waldron MA 10/10/2024 Refill [facility] [address] [place] [address] Delmer Yadav DO Muscle spasm (Primary Dx) 10/07/2024 11:00 AM EDT Office Visit [facility] [address] [place] [address] Anselmo Potts PA Attention and concentration deficit; KIRA (obstructive sleep apnea); Family history of diabetes mellitus (DM); Family history of heart disease; Abnormal weight gain; Abdominal obesity and metabolic syndrome; Elevated fasting insulin level with normal glucose (CMS/HCC); Essential hypertension (CMS/HCC); Mixed hyperlipidemia (CMS/HCC) 10/07/2024 Bamboo flowsheet [facility] [address] [place] [address] Anselmo Potts PA 10/07/2024 Travel 09/16/2024 9:00 AM EDT Office Visit [facility] [address] [place] [address] Anselmo Potts PA KIRA (obstructive sleep apnea) (Primary Dx); Family history of diabetes mellitus (DM); Family history of heart disease; Abnormal weight gain; Abdominal obesity and metabolic syndrome; Elevated fasting insulin level with normal glucose (CMS/HCC); Essential hypertension (CMS/HCC); Mixed hyperlipidemia (CMS/HCC) 09/16/2024 Bamboo flowsheet [facility] [address] [place] [address] Anselmo Potts PA 09/16/2024 Travel 09/15/2024 Travel 09/15/2024 Results Follow-Up [facility] [address] [place] [address] Anselmo Potts PA 08/26/2024 2:20 PM EDT Office Visit [facility] [address] [place] [address] Anselmo Potts PA Metabolic syndrome (Primary Dx); Obesity (BMI 30-39.9); Mixed hyperlipidemia (CMS/HCC); Primary hypertension (CMS/HCC); KIRA (obstructive sleep apnea); Family history of diabetes mellitus (DM) 08/26/2024 Bamboo flowsheet [facility] [address] [facility] [address] [facility] [address] [place] [address] Anselmo Potts PA 08/26/2024 Travel from Last [...] Paternal Grandfather Diabetes Sister older sister reanna martin got dx of Diabetes Relation Name Status [...] often do you attend chur ch or mormonism services? Never 11/09/2023 Do you belong to any clubs o r organizations such as anabaptism groups, unions, fraternal or athletic groups, or [...] Recorded Patient Health Questionnaire-2 Score 0 10/07/2024 [facility] of Occupat ional Health - Occupational Stress [...] time in the past 12 m [facility], were you homeless or living in a halfway (including now)? No 11/09/2023 Sex and Gender [...] [address] [place] [address] Anselmo Potts PA [address] [place] [address] Health Maintenance Due Date Last Done Comments Influenza Vaccine Completed 03/21/2024, , 03/27/2023, Additional history exists Goals Goal Patient Goal Type Associated Problems Recent Progress Patient-Stated? Author Help patient manage antidepressant medication Care Plan Patient on antidepressant monitoring plan No Anselmo Potts, PA Baseline PHQ-9 Care Plan Baseline PHQ-9 No Anselmo Potts, PA Procedures Procedure Name Priority Date/Time Associated [...] * Insulin antibody (09/02/2024 8:12 AM EDT) INSULIN ANTIBODIES <5.0 uU/mL [facility] Comment: This [...] - 09/12/2024 6:07 AM EDT Performed at: - [facility] [address] [place] [id number] Heel Cutter: Jason Malloy MD, Phone: [phone] us Anselmo LAMBERT LAB BLOOD ORDERABLES Final Resul t [facility] * Hemoglobin A1c (09/02/2024 8:12 AM EDT) [facility] HgbA1C 5.0 4.8 - 5.6 % [facility] Comment: Prediabetes: 5.7 - 6.4 Diabetes: >6.4 Glycemic control for adults with diabetes: <7.0 Blood Venous blood specimen / Unknown 09/02/2024 8:12 AM EDT 09/02/2024 Narrative [facility] - 09/03/2024 6:07 AM EDT Performed at: [facility] [id number] Heel Cutter: Rivera Carrillo PhD, Phone: [phone] Anselmo LAMBERT LAB BLOOD ORDERABLES Final Resul t Performing Organization Address [facility] de Phone Number [facility] * Ia-2 antibody (09/02/2024 8:11 AM EDT) [facility] IA-2 AUTOANTIBODIES <7.5 U/mL [facility] Comment: Reference Range: <7.5 Negative > or = 7.5 Positive Blood Venous blood specimen / Unknown 09/02/2024 8:11 AM EDT 09/02/2024 Narrative [facility] - 09/11/2024 6:06 AM EDT Performed at: [facility] [address] [place] [id number] Heel Cutter: Jason Malloy MD, Phone: [phone] Anselmo LAMBERT LAB BLOOD ORDERABLES Final Resul t Performing Organization Address City/[facility] Co de Phone Number [facility] * Zinc Transporter 8 Antibody (09/02/2024 8:11 AM EDT) [facility] ZNT8 Antibodies <15 U/mL [facility] Comment: Reference Range: All Ages: <15 Negative > or =15 Positive Blood Venous blood specimen / Unknown 09/02/2024 8:11 AM EDT 09/02/2024 Narrative [facility] - 09/13/2024 6:07 AM EDT Performed at: 01 - [facility] [address] [place] [id number] Heel Cutter: Jason Malloy MD, Phone: [phone] Anselmo LAMBERT LAB BLOOD ORDERABLES Final Resul t Performing Organization Address City/[facility]/ZIP Co de Phone Number [facility] * (ABNORMAL) Insulin, fasting (09/02/2024 8:11 AM EDT) Insulin 35.1(H) 2.6 - 24.9 uIU/mL [facility] Blood Venous blood specimen / Unknown 09/02/2024 8:11 AM EDT 09/02/2024 Narrative [facility] - 09/11/2024 6:06 AM EDT Performed at: 02 - [facility] [id number] Heel Cutter: Rivera Carrillo PhD, Phone: [phone] us Anselmo LAMBERT LAB BLOOD ORDERABLES Final Resul t Performing Organization Address [facility] Co de Phone Number [facility] * Glutamic acid decarboxylase (09/02/2024 8:11 AM EDT) [facility] REYNOLD-65 <5.0 0.0 - 5.0 U/mL [facility] Blood Venous blood specimen / Unknown 09/02/2024 8:11 AM EDT 09/02/2024 Narrative [facility] - 09/11/2024 6:06 AM EDT Performed at: 03 - [facility] [id number] Heel Cutter: Jabari Nayak MD, Phone: [phone] Anselmo LAMBERT LAB BLOOD ORDERABLES Final Resul t Performing Organization Address City/[facility]/ZIP Co de Phone Number [facility] * (ABNORMAL) C-peptide (09/02/2024 8:11 AM EDT) C-PEPTIDE, SERUM 4.5(H) 1.1 - 4.4 ng/mL [facility] Comment:C-Peptide reference interval is for fasting patients. Blood Venous blood specimen / Unknown 09/02/2024 8:11 AM EDT 09/02/2024 Narrative [facility] - 09/11/2024 6:06 AM EDT Performed at: 02 - [facility] [address] [id number] Heel Cutter: Rivera Carrillo PhD, Phone: [phone] us Anselmo LAMBERT LAB BLOOD ORDERABLES Final Resul t [facility] from Last 3 Months Additional Health Concerns Active Problems Noted Date Diagnosed Date Patient on antidepressant monitoring plan 2023 Baseline PHQ-9 03/25/2024 Insurance [employer] Care Teams Mineral Industry Teacher Relationship Specialty Start Date End Date Delmer Yadav DO [address] [place] [address] PCP - General Family Medicine 09/07/23 Umer Ruelas DO [address] [place] [address] PCP - Medical [place] [employer] 11/26/19 05/27/99
--- OUTSIDE RECORDS SUMMARY | 2024-10-23 10:02 | XMS_ITS | Encounter Summary ---
Author Organization [facility] Address [address] [place] [address] Care Team Providers Care Producer Arborist Manager Name Role Phone Delmer Yadav DO Primary Care Provider [phone] Umer Ruelas DO Unavailable [phone] Reason for Visit * Reason Onset Date Comments Med Refill 10/10/2024 Encounter Details Date Type Department Care Team (Late st Contact Info) Description 10/10/2024 Refill [facility] [address] [facility] [address] [place] [address] Delmer Yadav, DO [address] [facility] [address] [place] [address] Muscle spasm (Primary Dx) Social [...] often do you attend chur ch or methodist services? Never 11/09/2023 Do you belong to [...] Recorded Patient Health Questionnaire-2 Score 0 10/07/2024 [facility] of Occupat ional Health - Occupational [...] time in the past 12 m [facility], were you homeless or living in a snf (including now)? No 11/09/2023 Sex and Gender [...] [address] [place] [address] Anselmo Potts PA [address] [place] [address] documented as of this encounter Goals Goal [...] documented as of this encounter Care Teams Producer Arborist Manager Relationship Specialty Start Date End Date Delmer Yadav DO [address] [place] [address] PCP - General Family Medicine 09/07/23 Umer Ruelas DO [address] [place] [address] [place] [address] PCP - Medical [place] [employer] 11/26/19 05/27/99 documented as of this encounter
--- OUTSIDE RECORDS SUMMARY | 2024-10-23 10:02 | XMS_ITS | Encounter Summary ---
Author Organization [facility] Address [id number] [address] [place] [address] Care Team Providers Care Product Safety Coordinator Name Role Phone Jose Valles SKATING RINK ICE MAKER-BUSINESS OFFICE ASSOCIATE Primary Care Provider [phone] Encounter Details Date Type Department Care Team (Late st Contact Info) Description 07/19/2020 [facility] [address] [place] [phone] Ref Prov, [place] [address] Social History Tobacco Use Types Packs/Day Years [...] often do you attend chur ch or samaritan services? Never 12/23/2019 Do you belong to any clubs o r organizations such as pentecostal groups, unions, fraternal or athletic groups, or [...] Answer Date Recorded Total Score 0 12/23/2019 [facility] of Occupat ional Health - Occupational Stress [...] Recorded Do you need help finding a [facility] career center and/or a training program? No [...] documented as of this encounter Care Teams Product Safety Coordinator Relationship Specialty Start Date End Date Jose Valles, SKATING RINK ICE MAKER-BUSINESS OFFICE ASSOCIATE [address] [place] [address] PCP - General Nurse Practitioner 07/18/22 documented as of this encounter
--- OUTSIDE RECORDS SUMMARY | 2024-10-23 10:02 | XMS_ITS | Encounter Summary ---
Author Organization [facility] Address [address] [place] [address] Care Team Providers Care Chef Under Name Role Phone Delmer Yadav DO Primary Care Provider [phone] Umer Ruelas DO Unavailable [phone] Encounter Details Date Type Department Care Team (Late st Contact Info) Description 03/24/2024 Abstract [facility] [address] [facility] [address] [place] [address] Delmer Yadav, [address] [facility] [address] [place] [address] Social History Tobacco Use Types Packs/Day Years [...] often do you attend chur ch or druze services? Never 11/09/2023 Do you belong to any clubs o r organizations such as restorationism groups, unions, fraternal or athletic groups, or [...] Recorded Patient Health Questionnaire-2 Score 0 01/11/2024 [facility] of Occupat ional Health - Occupational [...] time in the past 12 m [facility], were you homeless or living [...] [address] [place] [address] Anselmo Potts PA [address] [place] [address] documented as of this encounter Visit Diagnoses Not on filedocumented in this encounter Care Teams Chef Under Relationship Specialty Start Date End Date Delmer Yadav DO [address] [place] [address] PCP - General Family Medicine 09/07/23 Umer Ruelas DO [address] [place] [address] PCP - Medical [place] [employer] 11/26/19 05/27/99 documented as of this encounter
--- OUTSIDE RECORDS SUMMARY | 2024-10-23 10:02 | XMS_ITS | Encounter Summary ---
Author Organization [facility] Address [address] [place] [address] Care Team Providers Care Respiratory Care Technician Name Role Phone Delmer Yadav DO Primary Care Provider [phone] Umer Ruelas DO Unavailable [phone] Encounter Details Date Type Department Care Team (Late st Contact Info) Description 10/22/2024 Orders Only [facility] [address] [facility] [address] [place] [address] Anselmo Potts PA [address] [facility] [address] [place], [place] [id number] Diarrhea of presumed infectious origin (Primary Dx) [...] often do you attend chur ch or bahai services? Never 11/09/2023 Do you belong to [...] Recorded Patient Health Questionnaire-2 Score 0 10/07/2024 [facility] - Occupational Stress Questionnaire Answer Date [...] any time in the past 12 m [facility], were you homeless or living in a fdc (including now)? No 11/09/2023 Sex and Gender [...] Visit [facility] [address] [place] [address] Anselmo Potts PA [address] [place] [address] Scheduled Orders Name Type Priority Associated Diagnoses [...] documented as of this encounter Care Teams Respiratory Care Technician Relationship Specialty Start Date End Date Delmer Yadav DO [address] [place] [address] PCP - General Family Medicine 09/07/23 Umer Ruelas DO [address] [place] [address] PCP - Medical [employer] 11/26/19 05/27/99 documented as of this encounter
--- OUTSIDE RECORDS SUMMARY | 2024-10-23 10:02 | XMS_ITS | Clinical Summary ---
Author Organization [facility] Address [id number] [address] [place] [address] Care Team Providers Care Newspaper Editor Name Role Phone Jose Valles [employer] Primary Care Provider [phone] Allergies No known active allergies Medications polyethylene glycol (GLYCOLAX) 17 gram/dose powder 2 Active adapalene (DIFFERIN) 0.1 % cream Active montelukast (SINGULAIR) 10 mg tabletIndicatio ns:Chronic allergic rhinitis Take 1 tablet (10 mg total) by mouth in the morning. 30 tablet 2 2 Active glycopyrrolate (RobinuL) 1 mg tabletIndicatio ns:Hyperhidrosi s Take 1 tablet (1 mg total) by mouth in the morning and 1 tablet (1 mg total) before bedtime. 180 tablet 1 2 Active Additional Information Patient taking differently: 2 mgoral3 times daily, Reported on 07/18/2022 loratadine (CLARITIN) 10 mg tablet Take 1 tablet (10 mg total) by mouth in the morning and at bedtime. Active atorvastatin (LIPITOR) 10 mg tablet Take 1 tablet (10 mg total) by mouth in the morning. Active pregabalin (LYRICA) 75 mg capsule Take 1 capsule (75 mg total) by mouth in the morning and 1 capsule (75 mg total) before bedtime. Active clindamycin-jessika zoyl peroxide (BENZACLIN) gel Apply 1 application. topically in the morning and 1 application. before bedtime. Active vortioxetine (TRINTELLIX) 20 mg tablet Take 1 tablet (20 mg total) by mouth in the morning. Active melatonin 10 mg tablet,disinteg rating Dissolve on tongue. Active famotidine (PEPCID) 20 mg tablet Take 1 tablet (20 mg total) by mouth in the morning and 1 tablet (20 mg total) before bedtime. Active lisinopriL (PRINIVIL,ZESTR IL) 20 mg tablet Take 1 tablet (20 mg total) by mouth in the morning. 30 tablet 2 3 Active triamcinolone (NASACORT) 55 mcg nasal inhaler Administer 2 sprays into each nostril in the morning. Active azelastine (ASTELIN) 137 mcg (0.1 %) nasal spray Administer 2 sprays into each nostril in the morning and 2 sprays before bedtime. Use in each nostril as directed. 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 Essential hypertension 06/28/2020 Hyperhidrosis 01/13/2020 Primary insomnia 12/25/2019 Immunizations Immunization Administration Dates Next Due COVID-19, mRNA, LNP-S, PF, 100mcg/0.5mL Dose 04/01/2021,07/02/2020,06/04/2020 DTP / HiB 06/29/1996,04/10/1996,02/11/1996 DTaP 08/19/1997,07/23/1996 Hep B, Unspecified 08/19/1997,02/11/1996, 996 Hib (HbOC) 07/23/1996 Influenza, Injectable, quadr ivalent (PF) 03/18/2021,02/20/2020 Influenza, Unspecified 06/17/2019 MMR 12/22/1996 Pneumococcal Conjugate 12/22/1996,1996,04/10/1996,1995 Polio, Unspecified 07/23/1996,04/10/1996, 996 Varicella 12/22/1996 Family History Medical History Relation Name Comments Cancer Father Diabetes Father Heart disease Father Parkinsonism Father No Known Problems Mother Colon cancer Paternal Grandfather Prostate cancer Paternal Grandfather Cancer Paternal Grandmother Depression Paternal Grandmother Celiac disease Sister Relation Name Status Comments Father Alive Mother Alive Paternal Grandfather Paternal Grandmother Sister Alive Social History Tobacco Use Types Packs/Day Years Used Date Smoking Tobacco: Never Smokeless Tobacco: Never Tobacco Cessation:Counseling Given: Not Answered Alcohol Use Standard Drinks/Week Comments Not Currently 0 (1 standard drink = 0.6 oz pure alcohol) socially about 5 drinks a year Social Connection and Isolat ion Panel [NHANES] Answer Date Recorded In a typical week, how many times do you talk on the phone with family, friends, or neighbors? More than three times a week 07/18/2022 How often do you get togethe r with friends or relatives? Three times a week 07/18/2022 How often do you attend chur ch or mormon services? Never 07/18/2022 Do you belong to any clubs o r organizations such as judaism groups, unions, fraternal or athletic groups, or school groups? No 07/18/2022 How often do you attend meet ings of the clubs or organizations you belong to? Never 07/18/2022 Are you , , di vorced, , never , or living with a partner? 07/18/2022 AUDIT-C Answer Date Recorded Q1: How often do you have a drink containing alcohol? Never 07/18/2022 Q2: How many drinks containi ng alcohol do you have on a typical day when you are drinking? Patient does not drink Q3: How often do you have si x or more drinks on one occasion? Less than monthly 07/18/2022 Overall Financial Resource Strain (CARDIA) Answe r Date Recorded How hard is it for you to pa y for the very basics like food, housing, medical care, and heating? Not very hard 07/18/2022 PHQ-2 Answer Date Recorded Total Score 4 07/18/2022 [facility] [place] [facility] Occup[facility] - Occupational Stress Questionnaire Answer Date Recorded Do you feel stress - tense, restless, nervous, or anxious, or unable to sleep at night because your mind is troubled all the time - these days? Not at all 07/18/2022 Exercise Vital Sign Answer Date Recorde d On average, how many days pe r week do you engage in moderate to strenuous exercise (like a brisk walk)? 4 days 07/18/2022 On average, how many minutes do you engage in exercise at this level? 30 min 07/18/2022 PRAPARE - Transportation Answer Date Re corded In the past 12 months, has l ack of transportation kept you from medical appointments or from getting medications? No 06/29 In the past 12 months, has l ack of transportation kept you from meetings, work, or from getting things needed for daily living? No 07/18/2022 Housing Instability Answer Date Recorde d Are you worried or concerned that in the next two months you may not have stable housing that you own, rent or stay in as a part of a household? No 07/18/2022 Childcare Answer Date Recorded Do problems getting child ca re make it difficult for you to work or study? No 07/18/2022 Employment Answer Date Recorded Do you need help finding a [employer] [facility] career center and/or a training program? No 07/18/2022 Hunger Screening Answer Date Recorded Within the past 12 months we worried whether our food would run out before we got money to buy more. Never True 07/31/2022 Within the past 12 months th e food we bought just didn't last and we didn't have money to get more. Never True 07/31/2022 Purpose - Life Answer Date Recorded I have a purpose and direction in my life. Agree 07/18/2022 Education Answer Date Recorded What is the [...] Orientation Long 01/28/2021 11 :02 AM EDT Last Filed Vital Signs Vital Sign Reading Time Taken Comments Blood Pressure 128/78 07/26/2022 10:57 AM EST Pulse 97 07/26/2022 10:57 AM EST Temperature 36.9 C (98.5 F) 07/19/2022 7:00 AM EST Respiratory Rate 18 07/26/2022 10:57 AM EST Oxygen Saturation 98% 07/19/2022 7:00 AM EST Inhaled Oxygen Concentration - - Weight 118.8 kg (262 lb) 07/31/2022 8:44 AM EST Height 175.3 cm (5' 9 ) 07/31/2022 8:44 AM EST Body Mass Index 38.69 07/31/2022 8:44 AM EST Plan of Treatment Health Maintenance Due Date Last Done Comments DTaP,Tdap and Td Vaccines (5 - Tdap) 12/11/2006 08/19/1997, 07/23/1996, 06/29/1996, Additional history exists Tobacco Screening 2007 Depression Screening 07/18/2023 07/18/2022 Adult BMI Screening 08/01/2023 07/31/2022 COVID-19 Vaccine (2023-2 5 season) 2024 04/01/2021, 07/02/2020, 06/04/2020 Influenza Vaccine 01/26/2025 03/18/2021, , 06/17/2019 Goals Goal Patient Goal Type Associated Problems Recent Progress Patient-Stated? Author safe discharge to home General Yes Delisa Lang, RN Note: Evaluation of progress towards goal: safe transition from hospital to home with family support. Medical Devices Not on file Insurance [employer] Advance Directives * Full Code (Latest Code Status on File) Date Activated Date Inactivated Comments 07/19/2022 8:57 AM 07/19/2022 4:37 PM Care Teams Newspaper Editor Relationship Specialty Start Date End Date Jose Valles, [employer] [address] [place] [address] PCP - General Nurse Practitioner 07/18/22
--- OUTSIDE RECORDS SUMMARY | 2024-10-23 10:02 | XMS_ITS | Encounter Summary ---
Author Organization [facility] Address [address] [place] [address] Care Team Providers Care Disabilities Services Officer Name Role Phone Anselmo Potts PA-C Unavailable [phone] Anselmo Potts PA-C Primary Care Provider [phone] Source Comments In the event this information is protected by the Federal Confidentiality of Alcohol and Drug AbusePatient Records regulations: The Federal rules restrict any use of the information to criminally investigate or prosecute any alcohol or drug abuse patient.[facility] Encounter Details Date Type Department Care Team (Late st Contact Info) Description 11/12/2023 Patient Msg Hematology [address] [place], [place] [id number] Provider, [facility]cf Appointment Scheduled with Dr. Luong Social History Tobacco Use Types Packs/Day Years Used Date Smoking Tobacco: Never Assessed PHQ-2 Answer Date Recorded PHQ-2 score 0 09/27/2023 Area Deprivation Index Answer Date Chandler rded National Score (1-100), lower number is lower ri sk 61 10/01/2023 State Score (1-10), lower number is lower risk 4 10/01/2023 Data from: https://www.neighborhoodatlas.medicine.[facility].edu/. Last address used for calculation [place] [...] 05/26/2025 2:00 PM EST Office Visit Rheumatology [address] [place] [address] Margarita Eugene MD [address] [place] [address] follow up documented as of this encounter Visit Diagnoses Not on filedocumented in this encounter Care Teams Disabilities Services Officer Relationship Specialty Start Date End Date Anselmo Potts PA-C [address] [place] [address] PCP - General Physician Workers' Compensation Commissioner 05/20/24 Anselmo Potts PA-C [address] [place] [address] Referring Physician Workers' Compensation Commissioner 09/23/23 documented as of this encounter
--- OUTSIDE RECORDS SUMMARY | 2024-10-23 10:02 | XMS_ITS | Encounter Summary ---
Author Organization [facility] Address [address] [place] [address] Care Team Providers Care Grill Cook Name Role Phone Anselmo Potts PA-C Unavailable [phone] Anselmo Potts PA-C Primary Care Provider [phone] Source Comments In the event this information is protected by the Federal Confidentiality of Alcohol and Drug AbusePatient Records regulations: The Federal rules restrict any use of the information to criminally investigate or prosecute any alcohol or drug abuse patient.[facility] Encounter Details Date Type Department Care Team (Late st Contact Info) Description 10/21/2023 [place] [address] Provider, Ccf MRI Screening Questionnaire Completion Required Social History Tobacco Use Types Packs/Day Years Used Date Smoking Tobacco: Never Assessed PHQ-2 Answer Date Recorded PHQ-2 score 0 09/27/2023 Area Deprivation Index Answer Date Chandler rded National Score (1-100), lower number is lower ri sk 61 10/01/2023 State Score (1-10), lower number is lower risk 4 10/01/2023 Data from: https://www.neighborhoodatlas.medicine.[facility].edu/. Last address used for calculation [place] 10/01/2023 Sex and Gender Information Value Date Recorded Sex Assigned at Not on file Legal Sex Male 6:38 PM EST Gender Identity Male 07/03/2024 1:34 PM EST Sexual Orientation Not on file documented as of this encounter Plan of Treatment Upcoming Encounters Date Type Department Care Team (Late st Contact Info) Description 05/26/2025 2:00 PM EST Office Visit Rheumatology [address] [place] [address] Margarita Eugene MD [address] [place], [place] [id number] follow up documented as of this encounter Visit Diagnoses Not on filedocumented in this encounter Care Teams Grill Cook Relationship Specialty Start Date End Date Anselmo Potts PA-C [address] [facility] [address] [place] [address] PCP - General Physician Motor Vehicle Light Assembler 05/20/24 Anselmo Potts PA-C [address] [place] [address] Referring Physician Motor Vehicle Light Assembler 09/23/23 documented as of this encounter
--- OUTSIDE RECORDS SUMMARY | 2024-10-23 10:02 | XMS_ITS | Patient Health Record ---
Author Organization [facility] Address [address] [place] [address] Care Team Providers Care Dimpling Machine Operator Name Role Phone [facility], [facility] Primary Car e Provider Unavailable Re Avilez Unavailable Allergies No Known Allergies Reason For Referral [...] 03/21/2024 Administered Pfizer Covid19 (12yr & up) [place] (0.3mL) IM Intramuscular 03/27/2023 Administered Pfizer Covid19 Comirnaty (12yr and up) [place] (0.3mL) IM Intramuscular 03/21/2024 Administered z2023 FluBLOK, [...] Status W/U Status Risk Notes Problem Hypertension (67527633) Hypertension (I10) Active confirmed Problem Seasonal allergic rhinitis (591409969) Seasonal allergic rhinitis (J30.2) Active confirmed Problem 816732577 Obesity (BMI 30-39.9) (E66.9) Active confirmed Problem Generalized anxiety disorder (09383563) REYNOLD (generalized anxiety disorder) (F41.1) Active confirmed Problem Mixed connective tissue disease (335455675) Mixed connective tissue disease (M35.1) Active confirmed Problem hypercholesterolemia (disorder) (15425784) Hypercholesteremia (E78.00) Active confirmed Encounters Encounter Location Date Provider Diagnosis [address] [place] [address] 03/21/2024 Re Bose Encounter for immunization Z23 [...] Insured Coverage Start Date Coverage End Date [facility] [address] [place] [address] [id number] Toy Thomas Self - patient is the insured Medical (General) History Medical History History ICD Code Hypertension I10 Hypercholesteremia E78.00 REYNOLD (generalized anxiety disorder) F41.1 Seasonal allergic rhinitis J30.2 Insulin resistance E88.819 Mixed connective tissue disease M35.1 Surgical History Surgery Date(Month/Year) left ankle surgery
--- OUTSIDE RECORDS SUMMARY | 2024-10-23 10:02 | XMS_ITS | Encounter Summary ---
Author Organization [facility] Address [address] [place] [address] Care Team Providers Care Ice Hockey Coach Name Role Phone Delmer Yadav DO Primary Care Provider [phone] Umer Ruelas DO Unavailable [phone] Encounter Details Date Type Department Care Team (Late st Contact Info) Description 10/21/2024 Telephone [facility] [address] [facility] [address] [place] [address] Gris Waldron MA Social History Tobacco Use [...] week 11/09/2023 How often do you attend [facility] or yarsanism services? Never 11/09/2023 Do you belong to any clubs o r organizations such as rastafarian groups, unions, fraternal or athletic groups, or [...] Recorded Patient Health Questionnaire-2 Score 0 10/07/2024 [facility] - Occupational Stress Questionnaire Answer Date [...] any time in the past 12 m [facility], were you homeless or living in a care home (including now)? No 11/09/2023 Sex and Gender Information Value Date Recorded Sex Assigned at Male 09/07/2023 2:31 PM EDT Legal Sex Male 8:35 PM EDT Gender Identity Male 09/07/2023 2:31 PM EDT Sexual Orientation Long 09/07/2023 2: 31 PM EDT documented as of this encounter Miscellaneous Notes * Telephone Encounter - Gris Wladron MA - 10/21/2024 4:30 PM EDT Please advise. documented in this encounter Plan of Treatment Upcoming Encounters Date Type Department Care Team (Late st Contact Info) Description 11/04/2024 8:00 AM EDT Office Visit [facility] [address] [place] [address] Anselmo Potts PA [address] [place] [address] documented as of this encounter Goals Goal [...] documented as of this encounter Care Teams Ice Hockey Coach Relationship Specialty Start Date End Date Delmer Yadav DO [address] [place] [address] PCP - General Family Medicine 09/07/23 Umer Ruelas DO [address] [place] [id number] PCP - Medical [place] [employer] 11/26/19 05/27/99 documented as of this encounter
== END 2024-10-23 10:39 | disposition home or self-care (01) ==
PROVIDERS: PCP Physician Assistant; Visit Provider Physician Assistant
DX: R19.7 Diarrhea, unspecified (principal)
CPT/HCPCS: 87045; 87046; 87427